=== PATIENT | female | born 1960 | race Caucasian/White ===

== ENCOUNTER 2019-05-23 07:17 | Outpatient (CLI) | payer OTHER, SELFPAY ==
--- NOTE | 2019-05-23 07:26 | MM_ITS ---
WS: [id number] BILATERAL SCREENING DIGITAL MAMMOGRAM WITH CAD HISTORY: SCREENING COMPARISON: 12/18/2014 Bilateral CC and MLO views submitted. Computer aided detection analyzed. Breast composition: The breasts are heterogeneously dense, which may obscure small masses. No suspici ous masses, microcalcifications or architectural distortion. Benign calcifications in each breast. MM/[id number] IMPRESSION: BI-RADS: 2-Benign FOLLOW UP: 1 Year Follow-up
== END 2019-05-23 07:18 | disposition home or self-care (01) ==
LOC: RADSHAW 07:22
PROVIDERS: PCP Nurse Practitioner Family; Visit Provider Nurse Practitioner Family
DX: Z12.31 Encounter for screening mammogram for malignant neoplasm of breast (principal)
CPT/HCPCS: 77067

== ENCOUNTER → 2020-07-10 14:15 | Outpatient (BNVA) | payer OTHER, SELFPAY | PROVIDERS: PCP Nurse Practitioner Family; Visit Provider Obstetrics & Gynecology | DX: N95.0 Postmenopausal bleeding (principal); D25.0 Submucous leiomyoma of uterus; D25.1 Intramural leiomyoma of uterus | CPT/HCPCS: 81025; 88305 ==

== ENCOUNTER → 2020-08-21 15:39 | Outpatient (BNVA) | payer OTHER, SELFPAY | PROVIDERS: PCP Nurse Practitioner Family; Visit Provider Obstetrics & Gynecology | DX: Z20.822 Contact with and (suspected) exposure to COVID-19 (principal); D25.0 Submucous leiomyoma of uterus; D25.1 Intramural leiomyoma of uterus | CPT/HCPCS: 87635 ==

== ENCOUNTER 2020-08-27 14:39 | Observation (INO) | payer OTHER, SELFPAY ==
[2020-08-25 11:06] VITALS: BMI 35.9
--- NOTE | 2020-08-25 11:47 | ANES.PREANE2 ---
Pre-Anesthetic Assessment Pre-Anesthetic Assessment: Height/Weight: Height 1.55 m Weight 86.183 kg Preop Diagnosis: Uterine leiomyoma, postmenopausal bleeding Proposed Procedure: Operation Date: 08/27/20 07:00 Proposed Procedures p Total Abdominal Hysterectomy 48196 D25.1 N95.0(Not Applicable) - Osmani Davis MD s Salpingo Oophorectomy (Open)(Not Applicable) - Osmani Davis MD Was Beta Loretta taken within 24 hours: N/A Was Clonidine taken within 24 hours: N/A Social: Social History: No alcohol and No tobacco Exam: Pre-Anes Outpt Exam: alert, oriented x 3, clear to auscultation bilaterally and regular rate & rhythm Airway: Submandibular: WNL Cervical ROM: WNL MP: 2 Dentition: Full CV/HEM: CV/HEM: HTN Metabolic: Metabolic: Morbid obesity Anesthetic Plan: ASA status: 2 Anesthesia: General Risk of > 500 ml blood loss (7ml/kg in children): No PFSH Anesthesia PFSH: Medical History Hypertension Surgical History History of delivery 1983 and 1985 History of cholecystectomy Early Family History Grandfather CAD (coronary artery disease) Mother Hypertension Stroke Father CAD (coronary artery disease) Cancer Lung cancer - smoker Diabetes Lung disease COPD - smoker Denies family history of Clotting disorder Dementia Hyperlipidemia Psychiatric illness Chronic kidney disease (CKD) Suicide Anesthesia complication Bleeding disorder Family history of premature coronary artery disease Social History (Updated 08/25/20 @ 07:53 by Shanika Rodríguez RN) Smoking and tobacco status: never smoked Alcohol intake: never Substance/Drug Use: never Data Anesthesia Cardiac Studies: No Data to Display
[2020-08-25 12:19] LABS: Basophils # 0.1 10^3/uL (0.0-0.1); Basophils % 0.9 %; Eosinophils # 0.3 10^3/uL (0.0-0.8); Eosinophils % 3.2 %; Hematocrit 45.1 % (37.0-47.0); Hemoglobin 14.9 g/dL (11.5-15.3); Lymphocytes # 2.3 10^3/uL (0.8-4.8); Mean Corpuscular Hemoglobin 29.3 pg (28.0-34.0); Mean Corpuscular Volume 88.8 fL (81-99); Monocytes # 0.6 10^3/uL (0.2-0.9); Monocytes % 7.2 %; Neutrophils # 4.87 10^3/uL (1.8-7.7); Neutrophils % 60.1 %; Nucleated Red Blood Cells % 0 %; Platelet Count 277 10^3/cmm (130-400); Red Blood Count 5.08 10^6/uL (4.1-5.3); White Blood Count 8.1 10^3/uL (4.0-10.0)
[2020-08-25 12:52] LABS: Urine Color Yellow (Yellow)
[2020-08-25 12:56] LABS: Alanine Aminotransferase 57 U/L (0-33); Albumin Level 4.5 g/dL (3.5-5.2); Alkaline Phosphatase 82 IU/L (35-105); Anion Gap 17.7 (5-19); Aspartate Amino Transferase 50 U/L (0-32); Blood Urea Nitrogen 11 mg/dL (6-20); Calcium 8.9 mg/dL (8.5-10.5); Carbon Dioxide 23 mmol/L (22-29); Chloride 104 mmol/L (98-107); Globulin 2.8 g/dL (1.3-4.6); Glomerular Filtration Rate 163.9 mL/min (90-130); Glucose 146 mg/dL (65-115); Osmolality Calculated 294 mOsm/kg (285-295); Potassium 3.7 mmol/L (3.5-5.1); Sodium 141 mmol/L (136-145); Total Bilirubin 0.5 mg/dL (0.15-1.2); Total Protein 7.3 g/dL (6.6-8.7)
[2020-08-25 13:05] LABS: Bilirubin Urine Neg (Negative); Blood Urine 3+ (Negative); Glucose Urine UA Norm (Normal); Ketones Urine Negative (Negative); Leukocyte Esterase Urine 2+ (Negative); Nitrate Urine Negative (Negative); Protein Urine Neg (Negative); Specific Gravity, Urine 1.015 (1.005-1.030); Urine Appearance Hazy (CLEAR); Urobilinogen Urine Norm (Negative); pH Urine 6 (5-7)
[2020-08-25 13:06] LABS: Add Urine Culture? Yes; Add Urine Microscopic? YES; RBC Urine 15-25 /hpf (0-2); Squamous Epithelial Cell Urine 0-4 /hpf (0-5)
[2020-08-25 14:08] LABS: Bacteria Urine 1+ /hpf
[2020-08-27] VITALS (15 sets, daily range): BP systolic 108–175; BP diastolic 7–88; PULSE 70–95; RESP 15–20; TEMP 36.6–37.3; O2SAT 91–98
[2020-08-27] MEDS: sodium chloride 0.9% 1,000 ML 30 ML IV (10:00)
[2020-08-27] MEDS: sodium chloride 0.9% 500 ML IV (10:09)
[2020-08-27] MEDS: scopolamine 1.5 Patch 1 PATCH TRANSDERMA (10:09)
--- NOTE | 2020-08-27 10:42 | W.PM.OPSUD ---
Surgery/Procedure H&P Update DATE OF PROCEDURE: August 27, 2020 DATE H&P PERFORMED: 08/25/20 H&P UPDATE INFORMATION: I have reviewed H&P completed within last 30 days, I have examined patient prior to procedure and No changes to prior documentation PREOP DIAGNOSIS: Uterine leiomyoma, postmenopausal bleeding PLANNED PROCEDURE: Operation Date: 08/27/20 10:40 Proposed Procedures p Total Abdominal Hysterectomy 61399 D25.1 N95.0(Not Applicable) - Osmani Davis MD s Salpingo Oophorectomy (Open)(Not Applicable) - Osmani Davis MD
--- NOTE | 2020-08-27 10:49 | P.ANESUD_ITS ---
Pre-Anesthetic Update Pre-Anesthetic Assessment: Date of Surgery/Procedure: 08/27/20 Preop Meli gnosis: Uterine leiomyoma, postmenopausal bleeding Proposed Procedure: Operation Date: 08/27/20 10:40 Proposed Procedures p Total Abdominal Hysterectomy 36918 D25.1 N95.0(Not Applicable) - Osmani Davis MD s Salpingo Oophorectomy (Open)(Not Applicable) - Osmani Davis MD Any changes to Pre-Anesthetic Assessment?: No Last Intake: Intake Last Liquid Date 08/26/20 Last Liquid Time 21:00 Last Solid Date 08/27/20 Last Solid Time 18:30 Labs Last 48hrs: Laboratory Results - last 48 hr 08/25/20 08/25/20 08/25/20 11:30 11:30 11:30 WBC 8.1 RBC 5.08 Hgb 14.9 Hct 45.1 MCV 88.8 MCH 29.3 MCHC 33.0 RDW 13.0 Plt Count 277 MPV 11.0 H Neut % (Auto) 60.1 Lymph % (Auto) 28.0 Alexander % (Auto) 7.2 Eos % (Auto) 3.2 Baso % (Auto) 0.9 Neut # (Auto) 4.87 Lymph # (Auto) 2.3 Alexander # (Auto) 0.6 Eos # (Auto) 0.3 Baso # (Auto) 0.1 Nucleated RBC % (a uto) 0 Nucleated RBCs # 0.0 Sodium 141 Potassium 3.7 Chloride 104 Carbon Dioxide 23 Anion Gap 17.7 BUN 11 Creatinine 0.4 L GFR Calculation 163.9 H Glucose 146 H Calculated Osmolal ity 294 Calcium 8.9 Total Bilirubin 0.5 AST 50 H ALT 57 H Alkaline Phosphata se 82 Total Protein 7.3 Albumin 4.5 Globulin 2.8 Urine Color Yellow Urine Appearance Hazy A Urine pH 6 Ur Specific Gravit y 1.015 Urine Protein Neg Urine Glucose (UA) Norm Urine Ketones Negative Urine Blood 3+ H Urine Nitrate Negative Urine Bilirubin Neg Urine Urobilinogen Norm Ur Leukocyte April ase 2+ H Urine RBC 15-25 H Urine WBC 10-15 H Ur Squamous Epith Cells 0-4 H Amorphous Sediment Not Reportable Urine Bacteria 1+ H Blood Type Rho(D) Type Antibody Screen 08/25/20 11:30 WBC RBC Hgb Hct MCV MCH MCHC RDW Plt Count MPV Neut % (Auto) Lymph % (Auto) Alexander % (Auto) Eos % (Auto) Baso % (Auto) Neut # (Auto) Lymph # (Auto) Alexander # (Auto) Eos # (Auto) Baso # (Auto) Nucleated RBC % (a uto) Nucleated RBCs # Sodium Potassium Chloride Carbon Dioxide Anion Gap BUN Creatinine GFR Calculation Glucose Calculated Osmolal ity Calcium Total Bilirubin AST ALT Alkaline Phosphata se Total Protein Albumin Globulin Urine Color Urine Appearance Urine pH Ur Specific Gravit y Urine Protein Urine Glucose (UA) Urine Ketones Urine Blood Urine Nitrate Urine Bilirubin Urine Urobilinogen Ur Leukocyte April ase Urine RBC Urine WBC Ur Squamous Epith Cells Amorphous Sediment Urine Bacteria Blood Type A Positive Rho(D) Type Positive / 4+ Antibody Screen Negative Vitals: Temperature 98.6 F 08/27/20 09:27 Temperature Source Temporal Artery S can 08/27/20 09:27 Pulse Rate 87 08/27/20 09:27 Respiratory Rate 18 08/27/20 09:27 Blood Pressure 175/88 08/27/20 09:27 Blood Pressure Luz n 117 08/27/20 09:27 Pulse Oximetry 98 08/27/20 09:27 Oxygen Delivery Me thod 08/27/20 09:27 Exam: Pre-Anes Outpt Exam: alert, oriented x 3, clear to auscultation bilaterally and regular rate & rhythm Cardiac Studies: No Data to Display
[2020-08-27] MEDS: ceFOXitin 2,000 MG in sodium chloride 0.9% (plus) 50 ML 100 MG IV (12:43)
--- NOTE | 2020-08-27 14:00 | SUR.OPER ---
FAMILY UPDATED VIA CELL PHONE
--- NOTE | 2020-08-27 14:37 | P.OP_ITS ---
Operative Report Date of procedure: August 27, 2020 Pre-op Diagnosis: Uterine leiomyoma, postmenopausal bleeding Post-op diagnosis: same Procedure Done: Total abdominal hysterectomy with bilateral salpingo- oophorectomy Specimens removed/disposition: Uterus with left and right adnexa with ovaries Surgeon: Osmani Davis MD Anesthesia: General Estimated blood loss (mL): 100 IV fluids (mL): 1,400 Urine output (mL): 200 Condition: stable Disposition: PACU Procedure: The patient was taken to the operating room, and after adequate level of general anesthesia was achieved, the patient was placed in the Trendelenburg position, prepped and draped in the usual sterile fashion. Subsequently, a Pfannenstiel incision was made and the incision was taken down to the fascia. The fascia was opened up sharply. The fascia was extended to the length of the incision using the Mejia scissors. At this time, the rectus muscles were dissected from the fascia superiorly and inferiorly to the symphysis pubis. The midline rectus muscles were opened sharply and extended superiorly and inferiorly. The peritoneum was visualized, grasped, opened sharply, and extended superiorly and inferiorly towards the bladder. The abdominal contents were packed superiorly away from the operative site using the lap packs. At this time, the pelvic organs were noted. The Ten self-retaining retractor was placed. Bowel was packed away from the operative site. The fundus of the uterus was then grasped with a triple-tooth tenaculum and retracted out of the pelvic cavity into the abdominal site. At this point, Sherrie clamps were placed in both right and left adnexal regions. Subsequently, using the Enseal cautery/sealing unit, the round ligaments were grasped, cauterized, and dissected. The bladder flap was then formed and the bladder flap was pushed away down anteriorly over the lower uterine segment, pushed away from the operative site on both the right and left sides. Subsequently, the posterior leaf of the broad ligament was opened sharply and the Enseal instrument was then placed below the level of the ovary in both the right and left side, care being taken not to damage bowel or uterus and the infundibulopelvic ligament was then grasped, cauterized, and again dissected. Further dissection of the broad ligament was carried down posteriorly towards the uterine vessels. The bladder was pushed inferiorly down towards the vagina. Subsequently, the uterine vessels were then grasped again with the Enseal machine, cauterized, and dissected. The cardinal ligaments were further grasped, dissected, and suture ligated, again with the Enseal machine. At that point, the Enseal machine instrument was stopped and straight Zeppelin clamps were used on the cardinal ligaments down towards the uterosacral ligaments. The cardinal ligaments were grasped, dissected with a scalpel and then ligated with transfixion sutures with #1 Vicryl suture down to the uterosacral ligaments. The uterosacral ligaments were grasped, dissected, and suture ligated again with #1 Vicryl suture and transfixion sutures. At that time, the bladder had been pushed over the vagina and at this time right-angle Zeppelin clamps were placed on the vagina at the level of the cervix, and using the Shan scissors, the cervix was dissected away from the vagina. At this time, the vaginal cuff was then closed using interrupted sutures of #1 Vicryl suture from the midline to each lateral corner. After the good hemostasis had been achieved in the vaginal cuff, both the right and left adnexa was visualized and no more bleeding was noted. The cuff was intact with no bleeding noted. The bladder was visualized and no bleeding was noted. Seprafilm was then placed over the vaginal cuff. The Ten self-retaining retractor was removed. The lap packs were removed, and at this time, general closure of the abdomen was carried out. The peritoneum was closed with a 2-0 Vicryl suture and continuous running suture. The fascia was closed using a #1 Vicryl suture from each corner to the midline. Subcutaneous tissue was cauterized. No bleeding was noted. The subcutaneous tissue was then reapproximated using plain sutures and interrupted sutures, and the skin was closed using the Insorbs subcuticular absorbable aliyah. The incision was infiltrated with Exparel for pain management. The patient tolerated the procedure well and was transferred to the recovery room in excellent condition. The patient returned to the floor for recovery.
--- NOTE | 2020-08-27 15:02 | SUR.PHASEI ---
PT AWAKES TO VOICE BUT QUICKLY BACK TO SLEEP WITH SNORTING RESP, VSS IV PATENT ABD LARGE SOFT WITH LARGE DRESSING TO LOWER ABD AND DARCIE PAD IN PLACE, KIDD TO DD WITH BLUE URINE NOTED TO TUBING AND BAG, PT PLACED ON 3LNC FOR COMFORT.
--- NOTE | 2020-08-27 15:14 | ANE.PACU2 ---
Inpatient post-anesthesia follow up: Airway intact: Yes Vital signs: Temperature 99.1 F Pulse Rate 95 Respiratory Rate 16 Blood Pressure 117/74 Pulse Oximetry 92 Oxygen Delivery Me thod Nasal Cannula Oxygen Flow Rate 3 Fraction of Inspir ed Oxygen Hydration adequate: Yes Nausea and vomiting: No Pain level: 2 Mental status: Baseline
[2020-08-27] MEDS: ondansetron 2 mg/ML SDV 2 mL 4 MG IVP (15:57)
[2020-08-27] MEDS: ketorolac 30 mg/mL INJ IVP ×2 (15:57→22:27)
[2020-08-27] MEDS: dextrose 5%-lactated ringers 1,000 ML 125 ML IV (16:38)
[2020-08-27] MEDS: docusate sodium 100 mg Capsule PO (17:45)
[2020-08-27] MEDS: HYDROcodone-acetaminophen 5-325 mg Tablet PO (17:45)
--- NOTE | 2020-08-27 18:56 | PC.NURSE ---
Call to Dr. Davis to report pt pain 01/02. Pt has had toradol and 2 norco. Received orders for one time dose of Dilauded 1 mg IVP.
[2020-08-27] MEDS: HYDROmorphone 1 mg/mL INJ 1 mL IVP (20:37)
[2020-08-28] VITALS (7 sets, daily range): BP systolic 100–130; BP diastolic 62–76; PULSE 62–76; RESP 16–18; TEMP 36.7–37.1; O2SAT 92–94
[2020-08-28] MEDS: HYDROcodone-acetaminophen 5-325 mg Tablet PO ×3 (02:46→18:08)
[2020-08-28] MEDS: dextrose 5%-lactated ringers 1,000 ML 125 ML IV ×3 (04:30→17:57)
[2020-08-28] MEDS: ketorolac 30 mg/mL INJ IVP ×2 (05:23→08:34)
[2020-08-28 05:43] LABS: Hematocrit 35.9 % (37.0-47.0); Mean Corpuscular HGB Conc 33.4 g/dL (30.0-36.0); Mean Corpuscular Hemoglobin 29.9 pg (28.0-34.0); Mean Corpuscular Volume 89.3 fL (81-99); Mean Platelet Volume 10.6 fL (7.4-10.4); Platelet Count 258 10^3/cmm (130-400); Red Blood Count 4.02 10^6/uL (4.1-5.3); Red Cell Distribution Width 13.1 % (12.1-15.1); White Blood Count 16.2 10^3/uL (4.0-10.0)
[2020-08-28] MEDS: losartan 50 mg Tablet 100 MG PO (08:33)
[2020-08-28] MEDS: docusate sodium 100 mg Capsule PO ×2 (08:33→17:57)
[2020-08-28] MEDS: amlodipine 5 mg Tablet PO (09:48)
--- NOTE | 2020-08-28 11:02 | PM.PN ---
Subjective Subjective: Interval history: Mrs. Mayen 60-year-old female with a history of postmenopausal bleeding and uterine leiomyoma status post total abdominal hysterectomy with bilateral salpingo-oophorectomy postoperative day 1 Vitals/I&O/Wt Last Vital Signs Temp 98.3 F 08/28/20 08:11 Pulse 62 08/28/20 08:11 Resp 16 08/28/20 08:11 BP 128/74 08/28/20 08:33 Pulse Ox 94 08/28/20 08:11 08/27/20 08/28/20 08/28/20 22:59 06:59 14:59 Intake Total 100 / 1950 1000 / 2950 502.083 / 502.083 Output Total 800 / 1450 900 / 2350 200 / 200 Balance -700 / 500 100 / 600 302.083 / 302.083 Physical Exam Narrative: EXAM NARRATIVE: GA: Alert and oriented ?3. HEENT: WNL. Heart: Regular rate and rhythm. Lungs: Clear to auscultation bilaterally. Abdomen: Bowel sounds present, minimal tenderness, incision clean and dry, no redness, pain or edema. VOCATIONAL REHAB CONSULTANT: No bleeding. Extremities: No edema, no cyanosis, no calves pain. Urinary Catheter Management^: Burger: Cath Placed During This Visit: yes Urinary Catheter Date of Insertion: 08/27/20 Urinary Catheter Time of Insertion: 12:50 Data : 08/28/20 05:30 08/25/20 11:30 Micro: Microbiology 08/25/20 11:30 Urine Culture - Final Urine,Clean Catch A&P Assessment and plan (1) Intramural and submucous leiomyoma of uterus: Mrs. Mayen status post LENI and BSO postoperative day 1. She is afebrile and hemodynamically stable. Tolerating diet fluids well. Refers pain under control better than yesterday. Ambulating without difficulty. Plan anticipate discharge home tomorrow. Status: Acute (2) Post-menopausal bleeding: Status: Acute Attestations Medical Necessity Statement*: In my professional opinion per admitting diagnosis Coding Level of Care Code Acute Air Conditioning Mechanic Industrial for Lisa Phillip Diagnoses Intramural and submucous leiomyoma of uterus D25.1; D25.0 Post-menopausal bleeding N95.0
[2020-08-28] MEDS: ibuprofen 800 mg tablet PO (15:05)
[2020-08-28] MEDS: ondansetron 2 mg/ML SDV 2 mL 4 MG IVP (20:16)
[2020-08-28] MEDS: simethicone 80 mg Chew PO (21:17)
[2020-08-28] MEDS: promethazine 25 mg/mL SDV 1 mL IM (21:56)
[2020-08-29] MEDS: HYDROcodone-acetaminophen 5-325 mg Tablet PO (00:46)
[2020-08-29 06:45] VITALS: BP 119/69; PULSE 70; RESP 18; TEMP 36.8
[2020-08-29] MEDS: ibuprofen 800 mg tablet PO (07:50)
[2020-08-29 08:51] VITALS: BP 163/86
[2020-08-29] MEDS: amlodipine 5 mg Tablet PO (08:51)
[2020-08-29] MEDS: losartan 50 mg Tablet 100 MG PO (08:51)
[2020-08-29] MEDS: docusate sodium 100 mg Capsule PO (08:52)
[2020-08-29 11:40] VITALS: BP 150/83; PULSE 78; RESP 15; TEMP 36.8; O2SAT 94
--- NOTE | 2020-08-29 12:54 | P.DS_ITS ---
Discharge Providers BUILDING MAINTENANCE TECHNICIAN Date of Admission: 08/27/20 14:39 Date of Discharge: 08/29/20 Attending Provider at Admission: Osmani Davis MD Attending Provider at Discharge: Osmani Davis MD Primary Care Provider: AYLEEN Dugan Diagnoses at Discharge Discharge Diagnosis (1) Intramural and submucous leiomyoma of uterus: Status: Acute (2) Post-menopausal bleeding: Status: Acute Reason for Visit Reason for Visit: uterine fibroid Hospital Course Hospital Course Home 60 years old female G2, P2, delivery x2 with postmenopausal bleeding and uterine leiomyoma. Admitted for a total abdominal hysterectomy and bilateral salpingo-oophorectomy. She is a status post abdominal hysterectomy with bilateral salpingo-oophorectomy postoperative day 2. the procedure was performed without complication. Postop observation uneventful. She is tolerating diet well ambulating without difficulty. Passing flatus. Pain under control with medication. Patient instructed to follow-up in the clinic next Tuesday to discuss confirmed pathology report. Physical Exam Narrative: EXAM NARRATIVE: GA: Alert and oriented ?3. HEENT: WNL. Heart: Regular rate and rhythm. Lungs: Clear to auscultation bilaterally. Abdomen: Bowel sounds present, nontender, minimal tenderness, incision clean and dry, no redness, pain or edema. ORACLE DISTRIBUTION CONSULTANT: No bleeding. Extremities: No edema, no cyanosis, no calves pain. Urinary Catheter Management^: Burger: Cath Placed During This Visit: yes, but has since been removed by the nurse Reason for Continuing Indwelling Catheter: Decision to DC Catheter Urinary Catheter Date of Insertion: 08/27/20 Urinary Catheter Time of Insertion: 12:50 Date Urinary Catheter Removed: 08/29/20 Time Urinary Catheter Discontinued: 08:57 Discharge Data Data Completed and Pending: Completed Studies During Hospitalization Category Date Time Status Pathology: Surgic al [PTH] Routine Pth 08/27/20 14:50 Completed Pending at discharge Category Date Time Status Miscellaneous Valerie t Routine Lab 08/28/20 07:57 Received Labs from last 24 hours 08/28/20 07:57 Misc Test Referenc e Pending Vitals: Last Vital Signs Temp 98.2 F 08/29/20 11:40 Pulse 78 08/29/20 11:40 Resp 15 08/29/20 11:40 BP 150/83 08/29/20 11:40 Pulse Ox 94 08/29/20 11:40 Discharge Plan Discharge Patient Disposition: Home Condition: Stable Prescriptions: New acetaminophen 325 mg capsule 325 mg PO Q4H PRN (Reason: fever or pain) Qty: 60 RF: 0 hydrocodone-acetaminophen 5-325 mg tablet 1 tab PO Q4H PRN (Reason: pain) Qty: 30 RF: 0 Colace 100 mg capsule 100 mg PO BID Qty: 60 RF: 0 Continued losartan 100 mg tablet 100 mg PO DAILY RF: 0 amlodipine 2.5 mg tablet 5 mg PO DAILY RF: 0 Discharge Orders: Discharge Order (Routine); Ordered 08/29/20 Ordered By: Osmani Davis Referrals: Osmani Davis MD [Physician] - 09/02/20 10:30 am (Your appointment with Dr. Davis next week is on 09/02 at 1030. Your 2 week post-op appointment is scheduled for 09/12 at 9 with Your 6 weeek post-op appointment is scheduled for 10/[address] Davis) Discharge Diet: Usual diet and GI Soft Discharge Activity: Increase activity as tolerated Patient Instructions: Abdominal Hysterectomy (DC), OB Abdominal Surgery - [facility], OB Discharge Report, OB Food/Drug Interaction Guide, Opioid Safety Activity Restrictions/Additional Instructions: 1. Please call [facility] on next working day to make your post-operative appointment in 1 weeks. 2. Please stay home until you come back to the clinic on first post-operative check up. 3. Please follow instructions on your medications CAREFULLY. 4. If you have abdominal incision, do not cover it unless dressing is necessary because of drainage. OK to shower, but avoid bath. Leave steri-strips until they fall off. If they are still on one week after surgery, you may remove them. 5. If you had vaginal surgery or vaginal repair, Dr. Davis may instruct you to take SITZ bath. 6. Yellow, blood tinged odorous vaginal discharge is usually normal after hysterectomy or vaginal surgeries. 7. No sexual intercourse, tampons, or douches until you are completely released from the post-operative care. 8. Avoid constipation by eating right and maybe using some Metamucil or Milk of Magnesia. 9. All prescription refills are given during the working hours. Please do no wait till it runs out. Call the clinic at [phone] before your medication runs out. The clinic will get in touch with your doctor to prescribe medications if necessary. 10. Please remain within 40 mile radius from our hospital because emergencies do happen now and then during the post-operative period. 11. If you have stairs at home, take one step at a time slowly and minimize the number of trips. It helps to stay in one floor for the next few days. No lifting except what you can lift by one hand until you are released from the post-operative care. 12. Driving is discouraged until you are well healed. It may be 3-4 weeks before you feel strong enough to drive. You should be able to turn and look through the rear window without pain and you should be able to push the brake pedal very hard without pain before you drive. No fast rules, but SAFETY should be your primary concern. DO NOT drive if you are on sedating medications such as narcotics. 13. Call the clinic (during working hours) to make urgent appointment or go to the Emergency room, if any of the following occurs: i. Vaginal bleeding becomes heavy, more than a period. ii. Incision becomes red and sore, or drains pus. iii. Your temperature is over 100.4 or you have chill. iv. IV site becomes red and swollen (a little ``knot?? is usually OK) v. Persistent nausea and vomiting vi. Persistent constipation or diarrhea vii. Rash or allergic reaction to medications. Discharge Attestations BUILDING MAINTENANCE TECHNICIAN Time Spent in Discharge Care*: greater than 30 min Coding Level of Care Code Acute Daub Color Mixer for rayo Phillip Diagnoses Intramural and submucous leiomyoma of uterus D25.1; D25.0 Post-menopausal bleeding N95.0
[2020-08-29 13:35] VITALS: BP 149/78; PULSE 82; RESP 16; TEMP 37.2; O2SAT 90
[2020-08-29 13:43] VITALS: BP 149/78; PULSE 82; RESP 16; TEMP 37.2; O2SAT 90
[2020-09-08 06:54] LABS: Miscellaneous Test See Scanned Lab Rpt
== END 2020-08-29 13:45 | disposition home or self-care (01) ==
LOC: OBGYN 08-29 07:38
PROVIDERS: Admitting Provider Obstetrics & Gynecology; PCP Nurse Practitioner Family; Visit Provider Obstetrics & Gynecology
PROC: 0UT90ZZ Resection of Uterus, Open Approach (ICD-10-PCS; CPT 58150; principal; 2020-08-27 10:40)
PROC: (CPT 58720; 2020-08-27 10:40)
DX: D25.1 Intramural leiomyoma of uterus (principal); D25.0 Submucous leiomyoma of uterus; N95.0 Postmenopausal bleeding; G89.18 Other acute postprocedural pain; K59.01 Slow transit constipation; I10 Essential (primary) hypertension; E66.01 Morbid (severe) obesity due to excess calories; Z68.35 Body mass index [BMI] 35.0-35.9, adult
CPT/HCPCS: 58150; 36415; 51702; 80053; 81001; 81025; 85025; 85027; 86850; 86900; 87086; 88305; 88307; 88341; 88342; 96365; 96372; C9290; G0378; J0694; J1100; J1170; J1200; J1885; J2405; J2550; J2704; J3010; J3490; J7030; J7040

== ENCOUNTER 2020-10-16 07:54 | Outpatient (CLI) | payer OTHER, SELFPAY ==
--- NOTE | 2020-10-16 08:06 | MM_ITS ---
WS: [id number] BILATERAL DIGITAL SCREENING MAMMOGRAPHY WITH CAD CLINICAL INFORMATION: SCREENING HISTORY: Screening mammogram. No current complaints. COMPARISON: May 23, 2019 TECHNIQUE: Bilateral CC and MLO views. FINDINGS: Scattered fibroglandular densities bilaterally. A few stable intramammary lymph nodes. Punctate and l ucent centered calcifications. No suspicious focal mass, asymmetry, calcifications, or architectural distortion. No evidence of malignancy. MM/[id number] IMPRESSION: BI-RADS: 2-Benign FOLLOW UP: 1 Year Follow-up Recommend return to annual screening mammography.
== END 2020-10-16 07:55 | disposition home or self-care (01) ==
LOC: RADSHAW 07:57
PROVIDERS: PCP Nurse Practitioner Family; Visit Provider Nurse Practitioner Family
DX: Z12.31 Encounter for screening mammogram for malignant neoplasm of breast (principal)
CPT/HCPCS: 77067

== ENCOUNTER 2021-12-29 08:31 | Outpatient (CLI) | payer OTHER, SELFPAY ==
--- NOTE | 2021-12-29 08:44 | MM_ITS ---
WS: [id number] BILATERAL SCREENING DIGITAL TOMOSYNTHESIS MAMMOGRAM WITH CAD HISTORY: SCREEN COMPARISON: 10/16/2020 and 05/23/2019 Bilateral CC and MLO views with tomosynthesis and synthetic mammography submitted. Computer aided det ection analyzed. Breast composition: The breasts are heterogeneously dense, which may obscure small masses. No suspici ous masses, microcalcifications or architectural distortion. Stable scattered asymmetries and calcifi cations. MM/[id number] IMPRESSION: BI-RADS: 2-Benign FOLLOW UP: 1 Year Follow-up
== END 2021-12-29 08:32 | disposition home or self-care (01) ==
LOC: RAD 08:32
PROVIDERS: PCP Nurse Practitioner Family; Visit Provider Nurse Practitioner Family
DX: Z12.31 Encounter for screening mammogram for malignant neoplasm of breast (principal)
CPT/HCPCS: 77063; 77067

== ENCOUNTER 2023-01-13 07:38 | Outpatient (CLI) | payer OTHER, SELFPAY ==
--- NOTE | 2023-01-13 | MM_ITS ---
WS: [id number] BILATERAL SCREENING DIGITAL TOMOSYNTHESIS MAMMOGRAM WITH CAD HISTORY: ANNUAL SCREENING COMPARISON: 12/29/2021, 10/16/2020 Bilateral CC and MLO views with tomosynthesis and synthetic mammography submitted. Computer aided det ection analyzed. Breast composition: The breasts are heterogeneously dense, which may obscure small masses. No suspici ous masses, microcalcifications or architectural distortion. Benign calcifications in each breast. IMPRESSION: MM/[place] [id number] BI-RADS: 2-Benign FOLLOW UP: 1 Year Follow-up
== END 2023-01-13 07:39 | disposition home or self-care (01) ==
PROVIDERS: PCP Nurse Practitioner Family; Visit Provider Nurse Practitioner Family
DX: Z12.31 Encounter for screening mammogram for malignant neoplasm of breast (principal)
CPT/HCPCS: 77063; 77067

== ENCOUNTER 2023-05-12 06:56 | Day surgery (SDC) | payer OTHER, SELFPAY ==
--- NOTE | 2023-05-12 06:40 | W.PM.OPSFHP ---
Same Day Surgery H&P Indication for Procedure/HPI DATE OF PROCEDURE: May 12, 2023 CHIEF COMPLAINT/INDICATIONFOR SURGICAL PROCEDURE: need for screening colonoscopy PREOP DIAGNOSIS: need for screening colonoscopy PLANNED PROCEDURE: Operation Date: 05/12/23 08:05 [place] [address] colon G0121 screen colon A risk Z12.11(Not Applicable) - Zachary Loera MD Medications/Allergies* Home Medications Medication Instructions Recorded Confirmed Type amlodipine 2.5 mg tablet 5 mg PO DAILY 08/25/20 05/10/23 History aspirin 81 mg tablet,delayed 81 mg PO DAILY 02/07/23 05/10/23 History release (Adult Low Dose Aspirin) atorvastatin 20 mg tablet 20 mg PO DAILY 02/07/23 05/10/23 History losartan 100 mg tablet 50 mg PO DAILY 02/07/23 05/10/23 History metformin 500 mg tablet,extended 500 mg PO BID 02/07/23 05/10/23 History release 24 hr spironolactone 25 mg PO DAILY 02/07/23 05/10/23 History tramadol 50 mg tablet 50 mg PO Q4H PRN Pain 02/07/23 05/10/23 History glyburide 2.5 mg tablet 2.5 mg PO DAILY 05/10/23 05/10/23 History Allergies/Adverse Reactions Allergy/AdvReac Type Severity Reaction Status Date / Time cedarwood Allergy Head Verified 05/10/23 08:57 congestion povidone-iodine Allergy blood Verified 05/10/23 08:57 [From Betadine] blisters soap [From Betadine] Allergy blood Verified 05/10/23 08:57 blisters Pertinent History/Comorbid Conditions* Medical History (Updated 01/12/22 @ 16:51 by Osmani Davis MD) Aftercare following surgery of the genitourinary system Hypertension Surgical History (Updated 09/12/20 @ 09:35 by Osmani Davis MD) H/O: hysterectomy 08/27/2020- [facility] with BSO performed by Dr. Davis at [facility] History of cholecystectomy Early History of delivery 1983 and 1985 Family History (Updated 07/08/20 @ 10:17 by Brianna Chase LPN) Diabetes Father CAD (coronary artery disease) Grandfather Father Lung disease Father COPD - smoker Cancer Father Lung cancer - smoker Hypertension Mother Stroke Mother Denies family history of Clotting disorder Dementia Hyperlipidemia Psychiatric illness Chronic kidney disease (CKD) Suicide Anesthesia complication Bleeding disorder Family history of premature coronary artery disease Social History Smoking and tobacco/nicotine status: never used tobacco/nicotine Alcohol intake: never Substance/Drug Use: never Pertinent Exam Findings alert, oriented x 3 and clear to auscultation bilaterally Recommendations Surgery/Procedure today Coding Level of Care Code Acute Code for [facility] Marjan
[2023-05-12 07:12] VITALS: BP 152/92; PULSE 88; RESP 18; TEMP 36.3; O2SAT 98; BMI 29.0
[2023-05-12] MEDS: sodium chloride 0.9% 1,000 ML 30 ML IV (07:24)
[2023-05-12 07:30] LABS: Glucose Point of Care 190 mg/dL (70-110)
--- NOTE | 2023-05-12 07:37 | ANES.PREANE2 ---
Pre-Anesthetic Assessment Height/Weight: Height 1.52 m Weight 67.585 kg Temp Pulse Resp BP Pulse Ox O2 Del Method 97.4 F L 88 18 152/92 98 Room Air 05/12/23 07:12 05/12/23 07:12 05/12/23 07:12 05/12/23 07:12 05/12/23 07:12 05/12/23 07:12 Preop Diagnosis: need for screening colonoscopy Operation Date: 05/12/23 08:05 Proposed Procedures p 27930 colon G0121 screen colon A risk Z12.11(Not Applicable) - Zachary Loera MD Familial anesthetic complications: none Was Beta Loretta taken within 24 hours: N/A Was Clonidine taken within 24 hours: N/A Last intake: Intake Last Liquid Date 05/11/23 Last Liquid Time 23:55 Last Solid Date 05/10/23 Last Solid Time 18:00 Social No alcohol and No tobacco Exam alert, oriented x 3, clear to auscultation bilaterally and regular rate & rhythm Airway Submandibular: within normal limits Cervical ROM: within normal limits Mallampati: Class II Dentition: full Pulmonary None reported CV/HEM Hypertension angiogram 2.5 years ago. everything checked out ok None reported Hepatic None reported GI Gastroesophageal Reflux Disease (with certain meals) Metabolic Diabetes Mellitus and Hyperlipidemia [facility] [place] None reported Neuropsych None reported Anesthetic Plan ASA status: 2 Anesthesia: MAC Risk of > 500 ml blood loss (7ml/kg in children): No Medications/Allergies Home Medications Medication Instructions Recorded Confirmed Last Taken Type amlodipine 2.5 mg tablet 5 mg PO DAILY 08/25/20 05/10/23 05/11/23 History aspirin 81 mg tablet,delayed 81 mg PO DAILY 02/07/23 05/10/23 05/04/23 History release (Adult Low Dose Aspirin) atorvastatin 20 mg tablet 20 mg PO DAILY 02/07/23 05/10/23 05/11/23 History losartan 100 mg tablet 50 mg PO DAILY 02/07/23 05/10/23 05/11/23 History metformin 500 mg tablet,extended 500 mg PO BID 02/07/23 05/10/23 05/11/23 History release 24 hr spironolactone 25 mg PO DAILY 02/07/23 05/10/23 05/11/23 History tramadol 50 mg tablet 50 mg PO Q4H PRN Pain 02/07/23 05/10/23 05/10/23 History glyburide 2.5 mg tablet 2.5 mg PO DAILY 05/10/23 05/10/23 05/11/23 History Allergies Allergy/AdvReac Type Severity Reaction Status Date / Time christian Allergy Head Verified 05/10/23 08:57 congestion povidone-iodine Allergy blood Verified 05/10/23 08:57 [From Betadine] blisters soap [From Betadine] Allergy blood Verified 05/10/23 08:57 blisters Current Medications Generic Name Dose Route Start Last Admin Trade Name Freq PRN Reason Stop Dose Admin Sodium Chloride 1,000 mls @ 30 mls/hr 05/12/23 07:15 05/12/23 07:24 Sodium Chloride 0.9% IV 30 mls/hr .Q24H CECELIA Administration PFSH Anesthesia Medical History Aftercare following surgery of the genitourinary system Hypertension Surgical History H/O: hysterectomy 08/27/2020- LENI with BSO performed by Dr. Davis at [facility] History of delivery 1983 and 1985 History of cholecystectomy Early Family History Grandfather CAD (coronary artery disease) Mother Hypertension Stroke Father CAD (coronary artery disease) Cancer Lung cancer - smoker Diabetes Lung disease COPD - smoker Denies family history of Clotting disorder Dementia Hyperlipidemia Psychiatric illness Chronic kidney disease (CKD) Suicide Anesthesia complication Bleeding disorder Family history of premature coronary artery disease Social History Smoking and tobacco/nicotine status: never used tobacco/nicotine Alcohol intake: never Substance/Drug Use: never Data Anesthesia Cardiac Studies: No Data to Display
[2023-05-12 08:57] VITALS: BP 146/88; PULSE 107; RESP 20; TEMP 36.1; O2SAT 98
[2023-05-12 09:09] VITALS: BP 135/87; PULSE 108; RESP 18; O2SAT 99
--- NOTE | 2023-05-12 09:20 | ANE.PACU2 ---
Inpatient post-anesthesia follow up: Airway intact: Yes Vital signs: Temperature 97.0 F Pulse Rate 108 Respiratory Rate 18 Blood Pressure 135/87 Pulse Oximetry 99 Oxygen Delivery Me thod Room Air Oxygen Flow Rate Fraction of Inspir ed Oxygen Hydration adequate: Yes Nausea and vomiting: No Pain level: 1 Mental status: Baseline
== END 2023-05-12 09:20 | disposition home or self-care (01) ==
PROVIDERS: PCP Nurse Practitioner Family; Visit Provider Surgery
PROC: 0DJD8ZZ Inspection of Lower Intestinal Tract, Via Natural or Artificial Opening Endoscopic (ICD-10-PCS; CPT 45378; principal; 2023-05-12 08:05)
DX: Z12.11 Encounter for screening for malignant neoplasm of colon (principal); I10 Essential (primary) hypertension; D12.8 Benign neoplasm of rectum; K21.9 Gastro-esophageal reflux disease without esophagitis; E78.5 Hyperlipidemia, unspecified; E11.9 Type 2 diabetes mellitus without complications; Z79.84 Long term (current) use of oral hypoglycemic drugs
CPT/HCPCS: 36416; 45380; 82962; 88305; J2704; J3490; J7030

== ENCOUNTER 2024-02-02 07:46 | Outpatient (CLI) | payer OTHER, SELFPAY ==
--- NOTE | 2024-02-02 07:48 | MM_ITS ---
WS: [id number] BILATERAL SCREENING DIGITAL TOMOSYNTHESIS MAMMOGRAM WITH CAD HISTORY: SCREENING COMPARISON: 01/13/2023, 12/29/2021 and 10/16/2020 Bilateral CC and MLO views with tomosynthesis and synthetic mammography submitted. Computer aided det ection analyzed. Breast composition: There are scattered areas of fibroglandular density. No suspicious masses, microc alcifications or architectural distortion. Benign calcifications in each breast. Arterial calcificati ons. MM/MM scr BI tomosynthesis [id number] IMPRESSION: BI-RADS: 2 - Benign. FOLLOW UP: 1 Year Follow-up
== END 2024-02-02 07:47 | disposition home or self-care (01) ==
LOC: RAD 07:47
PROVIDERS: PCP Nurse Practitioner Family; Visit Provider Nurse Practitioner Family
DX: Z12.31 Encounter for screening mammogram for malignant neoplasm of breast (principal)
CPT/HCPCS: 77063; 77067

== ENCOUNTER 2024-03-12 13:46 | Outpatient (CLI) | payer OTHER, SELFPAY ==
--- NOTE | 2024-03-12 13:48 | XR_ITS ---
WS: [id number] SCREENING DEXA SCAN AIRSIS CLINICAL INFORMATION: POSTMENOPAUSAL COMPARISON: None. FINDINGS: The L1-L4 bone mineral density measures 1.062 g/cm2. This corresponds to a T score score of -1.0 and Z score of 0.1. Left femoral neck bone mineral density measures 1.092 g/cm2. This corresponds to a T score of 0.7 and Z score of 1.5. Right femoral neck bone mineral density measures 1.103 g/cm2. This corresponds to a T score 0.8of and Z score of 1.6. Mean femoral neck bone mineral density measures 1.098 g/cm2. This corresponds to a T score of 0.7 and Z score of 1.6. XR/XR DEXA axial skeleton* [id number] IMPRESSION: Osteopenia lumbar spine. Normal bone mineralization of femoral necks. Patient's FRAX calculated 10 year probability for major osteoporotic fracture i s 6.7% and osteoporotic hip fracture is 0.3%.
== END 2024-03-12 13:47 | disposition home or self-care (01) ==
LOC: RAD 13:47
PROVIDERS: PCP Nurse Practitioner Family; Visit Provider Nurse Practitioner Family
DX: Z13.820 Encounter for screening for osteoporosis (principal); M85.80 Other specified disorders of bone density and structure, unspecified site; Z78.0 Asymptomatic menopausal state
CPT/HCPCS: 77080

== ENCOUNTER 2024-10-16 10:35 | Outpatient (CLI) | payer OTHER, SELFPAY ==
--- NOTE | 2024-10-16 10:41 | FL_ITS ---
WS: [id number] Exam: FL barium swallow modifd [id number] Date/Time of Exam: 10/16/2024 10:48 AM Reason For Exam: Other dysphagia Fluoroscopy time: 2min [id number] minutes # of spot films: 0 Modified barium swallow study was performed in conjunction with the speech therapy service. Oral pharyngeal phase of swallowing was normal. The patient tolerated all consistencies of barium mixture foodstuffs without aspiration or penetration. The patient swallowed a barium tablet without difficulty. FL/FL barium swallow modifd [id number] IMPRESSION: 1. No aspiration or penetration identified. No other significant finding. A separate report with recommendations will follow from the speech therapy serv ice.
== END 2024-10-16 10:36 | disposition home or self-care (01) ==
PROVIDERS: PCP Nurse Practitioner Family; Visit Provider Nurse Practitioner Family
DX: R13.19 Other dysphagia (principal)
CPT/HCPCS: 74230; 92611

== ENCOUNTER 2024-10-16 17:47 | Emergency (ER) | payer OTHER, SELFPAY ==
--- NOTE | 2024-10-16 17:48 | XRR_ITS ---
PROCEDURE INFORMATION: Exam: XR Right Shoulder Exam date and time: 10/16/2024 5:59 PM Age: 64 years old Clinical indication: Injury or trauma; Fall; Blunt trauma (contusions or hematomas); Shoulder; Right; Additional info: Fall, pain TECHNIQUE: Imaging protocol: Radiologic exam of the right shoulder. Views: 2 or more views. COMPARISON: RF FL barium swallow modifd [id number] 10/16/2024 10:47 AM FINDINGS: Bones/joints: There are acute comminuted fractures involving the proximal humerus. One fracture line extends through the surgical neck in the other fracture line extends through the anatomical neck of the humerus. There is mild displacement of the fracture fragments. The humeral head remains properly positioned. Soft tissues: Normal. XR/XR shoulder RT min 2V* [id number] IMPRESSION: Acute comminuted fractures of the proximal humerus
[2024-10-16 17:53] VITALS: BP 150/81; PULSE 91; RESP 18; TEMP 36.7; O2SAT 95
--- OUTSIDE RECORDS SUMMARY | 2024-10-16 18:10 | XMS_ITS | Clinical Summary ---
Author Organization [facility] Address [address] 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
--- OUTSIDE RECORDS SUMMARY | 2024-10-16 18:10 | XMS_ITS | Encounter Summary ---
Author Organization [facility] Address [address] [place] [address] Care Team Providers Care Manager Underwriting Name Role Phone Unavailable Primary Care Provider Unavailabl e Encounter Details Date Type Department Care Team (Latest Contact Info) Description 08/11/1998 Outpatient Historical 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
--- OUTSIDE RECORDS SUMMARY | 2024-10-16 18:10 | XMS_ITS | Data Portability ---
Author Organization [facility] De Dios Quechan [facility] Address [address] [address] Care Team Providers Care Technical Sales Engineer Name Role Phone [facility] Primary Care Provider SANNA Swanson Referring Provider [phone] KARLOS MADRID Referring Provider [phone] Assessment Encounter Date Assessment Date Assessment LastModified by Organization Details LastModified Time 12/30/2023 12/30/2023 Patient reports she has pain in her leg that was worse yesterday. Today she can put some weight on it but yesterday she couldn't even walk with it. The pain is in her upper right thigh. Tramadol didn't really help at all yesterday. Patient reports she was a little more active at home over the weekend. She will add some Ibuprofen for the next few days. Not available 12/30/2023 10:12:13 08/27/2024 08/27/2024 Patient here today for a check-up. Concerns discussed, hot flashes/cold spells most likely just normal effect following hysterectomy (appt with oncology/PROJECT DRILLING ENGINEER over the summer can discuss with them as well). Tingling pains and tenderness probably neuropathy, will add Gabapentin. DEXA scan results reviewed. Scheduled modified barium swallow then will get EGD scheduled following results. Not available 08/27/2024 11:43:53 Plan of Treatment Reminders Order Date Submit Date Provider Last Modified By Organization Details Last Modified Time Details Appointments None recorded. Lab microalbumi n/creatinin e, mass ratio, urine 2024 025 mphoria [facility], [address], [address], [place], [address], 5 06:49:40 hemoglobin A1C/hemoglo bin total, QN, blood 2024 025 [facility], [address], [address], [place], [address], 5 11:39:59 thyrotropin , QN, serum or plasma 2024 025 [facility], [address], [address], [place], [address], 5 12:26:54 CMP, serum or plasma 2024 025 [facility], [address], [address], [place], [address], 5 12:00:13 lipid panel, blood 2024 025 [facility], [address], [address], [place], [address], 12:00:16 CBC 2024 025 [facility], [address], [address], [place], [address], 5 11:38:46 urinalysis, complete 2023 024 [facility], [address], [address], [place], [address], 4 11:04:54 culture, urine 2023 024 [facility], [address] [place], [place] [address], [address], [place], [address], 4 21:42:30 CMP, serum or plasma 2023 024 [facility], [address] [place] [address], [address], [place], [address], 4 21:42:30 CBC 2023 024 [facility], [address] [facility], [address], [address], 4 10:54:29 HbA1c (hemoglobin A1c), blood 2023 024 [facility] ([facility] [address] [place], [address], 4 11:02:10 ca 125, serum 2023 024 [facility], [address] [place] [address], [address], [place], [address], 4 08:20:21 CBC w/ auto diff 2023 024 [facility], [address] [facility], [address], [place], [address], 4 07:16:50 CMP, serum or plasma 2023 024 [facility], [address] [facility], [address], [address], 4 12:22:33 TSH, serum or plasma 2023 024 [facility] ([facility]), [address] [place], [address], 4 12:45:47 vitamin B12, serum 2023 024 [employer] [facility], [address] [place] [address], [address], [place], [address], 4 08:20:21 Referral None recorded. Procedures None recorded. Surgeries None recorded. Imaging [place], modified barium swallow study [address] Imaging Orders, [address] [place], [address], 5 11:50:58 XR, hip + pelvis, unilateral, 2 or 3 view 2024 025 [facility] ([facility]), [address] [place], [address], 5 15:04:46 US, hip - [address] [address], [address] [place], [address], 5 13:23:10 bone density [address] (Scheduling Orders), [address] [place], [address], 4 11:51:56 Medication Orders gabapentin 100 mg capsule 2024 025 [facility], [facility] [place], [address], 5 18:13:36 ketorolac 60 mg/2 mL intramuscul ar solution 2024 025 [email or web address] [id number] Not available 5 15:24:20 fluticasone propionate 50 mcg/actuati on nasal spray,suspe nsion 2023 025 [facility], [facility] [place], [address], 5 10:42:51 Patient TargetsNo targets recorded. Patient Instructions Encounter Date Encounter Id Patient Instructions Last Modified By Organization Details Last Modified Time 12/30/2023 [id number] Call or return for questions or concerns. Not available 12/30/2023 10:03:23 08/27/2024 [id number] Call or return for questions or concerns. Not available 08/27/2024 10:53:25 Reason for Referral None Reported. Results Created Date Observation Date Name Description Value Unit Range Abnormal Flag Note LastModifiedBy Organization Detail LastModifiedTime 11/03/19 24 11/03/2023 CBC WBC 12.5 x10 4.0-10 .5 high Not Available [facility] [address] [facility] [address], [place], [address], 11/03/2023 11:49:11 11/03/19 24 11/03/2023 CBC RBC 5.37 x10 3.50-5 .50 Not Available [facility] [address] [facility] [address], [place], [address], 11/03/2023 11:49:11 11/03/19 24 11/03/2023 CBC HGB 15.9 g/dL 12.0-1 6.0 Not Available [facility] [address] [facility] [address], [place], [address], 11/03/2023 11:49:11 11/03/19 24 11/03/2023 CBC HCT 46.5 % 37.0-4 7.0 Not Available [facility] [address] [facility] [address], [place], [address], 11/03/2023 11:49:11 11/03/19 24 11/03/2023 CBC MCV 86.5 fL 80.0-9 9.9 Not Available [facility] [address] [facility] [address], [place], [address], 11/03/2023 11:49:11 11/03/19 24 11/03/2023 CBC MCH 29.6 pg 27.0-3 2.0 Not Available [facility] [address] [facility], [place], [address], 11/03/2023 11:49:11 11/03/19 24 11/03/2023 CBC MCHC 34.2 g/dL 32.0-3 6.0 Not Available [facility] [address] [facility], [place], [address], 11/03/2023 11:49:11 11/03/19 24 11/03/2023 CBC RDW 13.9 % 11.5-1 4.5 Not Available [facility] [address] [facility], [place], [address], 11/03/2023 11:49:11 11/03/19 24 11/03/2023 CBC plt 355.2 x10 140.0- 451.0 Not Available [facility] [address] [facility], [place], [address], 11/03/2023 11:49:11 11/03/19 24 11/03/2023 CBC lymphocytes % 18.6 % 20.0-5 0.0 low Not Available [facility] [address] [facility], [place], [address], 11/03/2023 11:49:11 11/03/19 24 11/03/2023 CBC granulcytes % 74.0 % 30.0-7 0.0 high Not Available [facility] [address] [facility], [place], [address], 11/03/2023 11:49:11 11/03/19 24 11/03/2023 CBC monocytes % 6.0 % 2.0-16 .0 Not Available [facility] [address] [facility], [place], [address], 11/03/2023 11:49:11 11/03/19 24 11/03/2023 CBC granulcytes# 9.3 x10 Not Sunni ilable [facility] [address] [address], [place], [address], 11/03/2023 11:49:11 11/03/19 24 11/03/2023 CBC lymphocytes # 2.3 x10 Not Available [facility] [address] [address], [place], [address], 11/03/2023 11:49:11 11/03/19 24 11/03/2023 CBC monocytes # 0.8 x10 Not Avai lable [facility] [address] [address], [place], [address], 11/03/2023 11:49:11 11/03/19 24 11/03/2023 CMP (FEMA LE) glucose 198.0 mg/dL 60.0-9 9.0 high Not Available [facility] [address] [address], [place], [address], 11/03/2023 12:22:33 11/03/19 24 11/03/2023 CMP (FEMA LE) BUN (blood urea nitrogen) 18.0 mg/dL 10.0-2 6.0 Not Available [facility] [address] [address], [place], [address], 11/03/2023 12:22:33 11/03/19 24 11/03/2023 CMP (FEMA LE) creatinine (serum) 0.7 mg/dL 0.4-1. 5 Not Available [facility] [address] [address], [place], [address], 11/03/2023 12:22:33 11/03/19 24 11/03/2023 CMP (FEMA LE) BUN/creatini ne ratio 26.87 ratio Not Available [facility] [address] [place], [address], 11/03/2023 12:22:33 11/03/19 24 11/03/2023 CMP (FEMA LE) eGFR calculated 95.1 Not Available [facility] [address] [facility], [place], [address], 11/03/2023 12:22:33 11/03/19 24 11/03/2023 CMP (FEMA LE) total protein 8.1 g/dL 6.0-8. 5 Not Available [facility] [address] [facility], [place], [address], 11/03/2023 12:22:33 11/03/19 24 11/03/2023 CMP (FEMA LE) total bilirubin 0.6 mg/dL 0.2-1. 3 Not Available [facility] [address] [facility], [place], [address], 11/03/2023 12:22:33 11/03/19 24 11/03/2023 CMP (FEMA LE) albumin 5.1 g/dL 3.5-5. 5 Not Available [facility] [address] [facility], [place], [address], 11/03/2023 12:22:33 11/03/19 24 11/03/2023 CMP (FEMA LE) globulin 3.0 calc Not Available [facility] [address] [facility], [place], [address], 11/03/2023 12:22:33 11/03/19 24 11/03/2023 CMP (FEMA LE) AST (SGOT) 29.0 U/L 0.0-46 .0 Not Available [facility] [address] [facility], [place], [address], 11/03/2023 12:22:33 11/03/19 24 11/03/2023 CMP (FEMA LE) altv (SGPT) 30.0 U/L 13.0-6 9.0 normal Not Available [facility] [address] [facility], [place], [address], 11/03/2023 12:22:33 11/03/19 24 11/03/2023 CMP (FEMA LE) A/G ratio 1.7 ratio Not Available [facility] [address] [facility] [address], [place], [address], 11/03/2023 12:22:33 11/03/19 24 11/03/2023 CMP (FEMA LE) ALP phos 95.0 U/L 30.0-1 40.0 normal Not Available [facility] [address] [facility] [address], [place], [address], 11/03/2023 12:22:33 11/03/19 24 11/03/2023 CMP (FEMA LE) calcium 10.4 mg/dL 8.4-10 .5 Not Available [place] [facility] [address] [address], [place], [address], 11/03/2023 12:22:33 11/03/19 24 11/03/2023 CMP (FEMA LE) sodium 136.0 mmol/ L 136.0- 145.0 Not Available [facility] [address] [facility], [place], [address], 11/03/2023 12:22:33 11/03/19 24 11/03/2023 CMP (FEMA LE) potassium 4.1 mmol/ L 3.5-5. 1 Not Available [place] [facility] [address] [facility], [place], [address], 11/03/2023 12:22:33 11/03/19 24 11/03/2023 CMP (FEMA LE) chloride 103.0 mmol/ L 98.0-1 10.0 normal Not Available [facility] [address] [facility] [address], [place], [address], 11/03/2023 12:22:33 11/03/19 24 11/03/2023 CMP (FEMA LE) C02 23.0 mmol/ L 22.0-3 1.0 Not Available [facility] [address] [facility] [address], [place], [address], 11/03/2023 12:22:33 11/03/19 24 11/03/2023 CMP (FEMA LE) anion gap 10.0 calc Not Available [facility] [address] [facility] [address], [place], [address], 11/03/2023 12:22:33 11/03/19 24 11/03/2023 CMP (FEMA LE) osmolality 287.9 calc Not Available [facility] [address] [facility] [address], [place], [address], 11/03/2023 12:22:33 11/03/19 24 11/05/2023 TEST AUTHO RIZAT ION test name: FINA Holloway D,25-O H,OMER L,IA Not Available [facility] [address], [place], [address], 11/05/2023 08:20:20 11/03/19 24 11/05/2023 TEST AUTHO RIZAT ION test code: 74560G B Not Available [facility] [address], [place], [address], 11/05/2023 08:20:20 11/03/19 24 11/05/2023 TEST AUTHO RIZAT ION client contact: CALEB Jhony BEATRIS Not Available [facility] [address], [place], [address], 11/05/2023 08:20:20 11/03/19 24 11/05/2023 TEST AUTHO RIZAT ION report always message signature The labor wilian testi ng on this patie nt was verba lly reque sted or confi rmed by the order ing physi florencio or his or her autho rized repre senta tive after conta ct with an emplo baxter of [facility] sSubha Isamar al regul ation s requi re that we maint ain on file writt en autho rizat ion for all labor wilian testalyson ng. Accor dingl y we are askin g that the order ing physi florencio or his or her autho rized repre senta tive sign a copy of this repor t and promp tly retur n it to the clien t servi ce repre senta tive. Signa ture: __ Not Available [facility] [address] [address] [place], [address], 11/05/2023 08:20:20 11/03/19 24 11/05/2023 TEST AUTHO RIZAT ION comment Fax kasey r: [phone] Not Available [facility] [employer] [address] [address] [place], [address], 11/05/2023 08:20:20 11/03/19 24 11/05/2023 VITAM IN B12 vitamin B12 434 pg/mL 200-11 00 normal Not Available [facility] [address] [address] [place], [address], 11/05/2023 08:20:21 11/03/19 24 11/05/2023 CA 125 Ca 125 13 U/mL <35 normal This test was perfo rmed using the Siem[employer] ns Chem[employer] lumin escen t metho d. Value s obtai melinda from diffe rent assay metho ds canno t be used inter nicholson eably . CA 125 level s, regar dless of value , shoul d not be inter prete d as absol teri evide nce of the prese nce or absen ce of disea se. Not Available [facility] [address] [address] [place], [address], 11/05/2023 08:20:21 11/03/19 24 11/05/2023 VITAM IN D,25- OH,TO ROSEANNA,I A vitamin D,25-oh,tota l,ia 30 NG/mL 30-100 normal Vitam in D Statu s 25-OH Vitam in D: Defic iency : <20 ng/mL Insuf ficie ncy: 20 - 29 ng/mL Optim al: > or = 30 ng/mL For 25-OH Vitam in D testi ng on patie nts on D2-martinez pplem entat ion and patie nts for whom quant itati on of D2 and D3 fract ions is requi red, the [facility](TM ) 25-OH VIT D, (D2,D 3), LC/MS /MS is recom dom d: order code 71186 (piedad ents >2yrs ). See Note 1 Note 1 For addit ional infor martín ulloa refer to http: //allison Mayfieldia gnost ics.c om/fa q/FAQ 199 (This link is being provi ded for infor kaci salvador/ michelle harrington purpo ses only. ) Not Available [facility] [address] [address] [place], [address], 11/05/2023 08:20:21 11/03/19 24 11/03/2023 TSH, serum or plasm a TSH 1.26 uIU/m L 0.49-3 .82 normal Not Available [facility] ([facility]) [address] [place] [address], [address], 11/03/2023 11:22:21 12/30/19 24 12/30/2023 CBC WBC 11.1 x10 4.0-10 .5 high Not Available [facility] [address] [facility], [place], [address], 12/30/2023 10:54:29 12/30/19 24 12/30/2023 CBC RBC 5.17 x10 3.50-5 .50 Not Available [facility] [address] [facility], [place], [address], 12/30/2023 10:54:29 12/30/19 24 12/30/2023 CBC HGB 15.8 g/dL 12.0-1 6.0 Not Available [facility] [address] [facility], [place], [address], 12/30/2023 10:54:29 12/30/19 24 12/30/2023 CBC HCT 45.0 % 37.0-4 7.0 Not Available [facility] [address] [facility], [place], [address], 12/30/2023 10:54:29 12/30/19 24 12/30/2023 CBC MCV 87.0 fL 80.0-9 9.9 Not Available [facility] [address] [facility], [place], [address], 12/30/2023 10:54:29 12/30/19 24 12/30/2023 CBC MCH 30.5 pg 27.0-3 2.0 Not Available [facility] [address] [facility], [place], [address], 12/30/2023 10:54:29 12/30/19 24 12/30/2023 CBC MCHC 35.0 g/dL 32.0-3 6.0 Not Available [facility] [address] [facility], [place], [address], 12/30/2023 10:54:29 12/30/19 24 12/30/2023 CBC RDW 13.6 % 11.5-1 4.5 Not Available [facility] [address] [facility], [place], [address], 12/30/2023 10:54:29 12/30/19 24 12/30/2023 CBC plt 302.8 x10 140.0- 451.0 Not Available [facility] [address] [facility], [place], [address], 12/30/2023 10:54:29 12/30/19 24 12/30/2023 CBC lymphocytes % 24.6 % 20.0-5 0.0 Not Available [facility] [address] [facility], [place], [address], 12/30/2023 10:54:29 12/30/19 24 12/30/2023 CBC granulcytes % 66.6 % 30.0-7 0.0 Not Available [facility] [address] [facility], [place], [address], 12/30/2023 10:54:29 12/30/19 24 12/30/2023 CBC monocytes % 6.3 % 2.0-16 .0 Not Available [facility] [address] [facility], [place], [address], 12/30/2023 10:54:29 12/30/19 24 12/30/2023 CBC granulcytes# 7.4 x10 Not Sunni ilable [facility] [address] [facility], [place], [address], 12/30/2023 10:54:29 12/30/19 24 12/30/2023 CBC lymphocytes # 2.7 x10 Not Available [facility] [address] [facility], [place], [address], 12/30/2023 10:54:29 12/30/19 24 12/30/2023 CBC monocytes # 0.7 x10 Not Avai lable [facility] [address] [facility], [place], [address], 12/30/2023 10:54:29 12/30/19 24 12/30/2023 URINA LYSIS WITH MICRO color DARK YELLOW Not Available [facility] [address] [facility], [place], [address], 12/30/2023 11:04:54 12/30/19 24 12/30/2023 URINA LYSIS WITH MICRO clarity CLEAR Not Available [facility] [address] [facility], [place], [address], 12/30/2023 11:04:54 12/30/19 24 12/30/2023 URINA LYSIS WITH MICRO glu NEGATI VE Not Available [facility] [address] [facility], [place], [address], 12/30/2023 11:04:54 12/30/19 24 12/30/2023 URINA LYSIS WITH MICRO bili 1+ high Not Available [facility] [address] [facility], [place], [address], 12/30/2023 11:04:54 12/30/19 24 12/30/2023 URINA LYSIS WITH MICRO ket NEGATI VE Not Available [facility] [address] [facility], [place], [address], 12/30/2023 11:04:54 12/30/19 24 12/30/2023 URINA LYSIS WITH MICRO S.g 1.030 1.005- 1.025 high Not Available [facility] [address] [facility], [place], [address], 12/30/2023 11:04:54 12/30/19 24 12/30/2023 URINA LYSIS WITH MICRO pH 5.5 5.0-7. 0 Not Available [facility] [address], [place], [address], 12/30/2023 11:04:54 12/30/19 24 12/30/2023 URINA LYSIS WITH MICRO pro 1+ high Not Available [facility] [address], [place], [address], 12/30/2023 11:04:54 12/30/19 24 12/30/2023 URINA LYSIS WITH MICRO uro 1.0 Not Available [facility] [address], [place], [address], 12/30/2023 11:04:54 12/30/19 24 12/30/2023 URINA LYSIS WITH MICRO nit NEGATI VE Not Available [facility] [address], [place], [address], 12/30/2023 11:04:54 12/30/19 24 12/30/2023 URINA LYSIS WITH MICRO blo NEGATI VE Not Available [facility] [address], [place], [address], 12/30/2023 11:04:54 12/30/19 24 12/30/2023 URINA LYSIS WITH MICRO bel 1+ high Not Available [facility] [address], [place], [address], 12/30/2023 11:04:54 12/30/19 24 12/30/2023 URINA LYSIS WITH MICRO WBC 8-10 abnormal Not Available [facility] [address], [place], [address], 12/30/2023 11:04:54 12/30/19 24 12/30/2023 URINA LYSIS WITH MICRO RBC NEGATI VE Not Available [facility] [address], [place], [address], 12/30/2023 11:04:54 12/30/19 24 12/30/2023 URINA LYSIS WITH MICRO epi cells 1-3 Not Available [facility] [address] [facility] [address], [place], [address], 12/30/2023 11:04:54 12/30/19 24 12/30/2023 URINA LYSIS WITH MICRO bacteria 2+ AMORPH OUS abnormal Not Available [facility] [address], [place], [address], 12/30/2023 11:04:54 12/30/19 24 12/30/2023 URINA LYSIS WITH MICRO other NEGATI VE Not Available [facility] [address] [facility] [address], [place], [address], 12/30/2023 11:04:54 12/30/19 24 12/31/2023 COMPR EHENS ANISH METAB OLIC PANEL glucose 91 mg/dL 65-99 normal Fasti ng refer ence inter tae Not Available [address] [address] [place], [address], 12/31/2023 21:42:29 12/30/19 24 12/31/2023 COMPR EHENS ANISH METAB OLIC PANEL urea nitrogen (BUN) 15 mg/dL 7-25 normal Not Available [facility] [address] [address] [place], [address], 12/31/2023 21:42:29 12/30/19 24 12/31/2023 COMPR EHENS ANISH METAB OLIC PANEL creatinine 0.65 mg/dL 0.50-1 .05 normal Not Available [facility] [address] [address] [place], [address], 12/31/2023 21:42:29 12/30/19 24 12/31/2023 COMPR EHENS ANISH METAB OLIC PANEL eGFR 100 mL/mi n/1.7 3m2 > or = 60 normal Not Available [address], [address], 12/31/2023 21:42:29 12/30/19 24 12/31/2023 COMPR EHENS ANISH METAB OLIC PANEL BUN/creatini ne ratio SEE NOTE: (calc ) 6-22 Not Repor pricila: BUN and Creat inine are withi n refer ence range . Not Available [address], [address], 12/31/2023 21:42:29 12/30/19 24 12/31/2023 COMPR EHENS ANISH METAB OLIC PANEL sodium 136 mmol/ L 135-14 6 normal Not Available [address], [address], 12/31/2023 21:42:29 12/30/19 24 12/31/2023 COMPR EHENS ANISH METAB OLIC PANEL potassium 4.2 mmol/ L 3.5-5. 3 normal Not Available [address], [address], 12/31/2023 21:42:29 12/30/19 24 12/31/2023 COMPR EHENS ANISH METAB OLIC PANEL chloride 99 mmol/ L 98-110 normal Not Available [address], [address], 12/31/2023 21:42:29 12/30/19 24 12/31/2023 COMPR EHENS ANISH METAB OLIC PANEL carbon dioxide 29 mmol/ L 20-32 normal Not Available [address], [address], 12/31/2023 21:42:29 12/30/19 24 12/31/2023 COMPR EHENS ANISH METAB OLIC PANEL calcium 10.5 mg/dL 8.6-10 .4 high Not Available [facility] [address], [address], 12/31/2023 21:42:29 12/30/19 24 12/31/2023 COMPR EHENS ANISH METAB OLIC PANEL protein, total 6.9 g/dL 6.1-8. 1 normal Not Available [address], [address], 12/31/2023 21:42:29 12/30/19 24 12/31/2023 COMPR EHENS ANISH METAB OLIC PANEL albumin 4.6 g/dL 3.6-5. 1 normal Not Available [address], [address], 12/31/2023 21:42:29 12/30/19 24 12/31/2023 COMPR EHENS ANISH METAB OLIC PANEL globulin 2.3 g/dL_ (calc ) 1.9-3. 7 normal Not Available [address], [address], 12/31/2023 21:42:29 12/30/19 24 12/31/2023 COMPR EHENS ANISH METAB OLIC PANEL albumin/glob ulin ratio 2.0 (calc ) 1.0-2. 5 normal Not Available [address], [address], 12/31/2023 21:42:29 12/30/19 24 12/31/2023 COMPR EHENS ANISH METAB OLIC PANEL bilirubin, total 0.7 mg/dL 0.2-1. 2 normal Not Available [address], [address], 12/31/2023 21:42:29 12/30/19 24 12/31/2023 COMPR EHENS ANISH METAB OLIC PANEL alkaline phosphatase 68 U/L 37-153 normal Not Available [place] [address] [place], [address], 12/31/2023 21:42:29 12/30/19 24 12/31/2023 COMPR EHENS ANISH METAB OLIC PANEL AST 19 U/L 10-35 normal Not Available [address], [address], 12/31/2023 21:42:29 12/30/19 24 12/31/2023 COMPR EHENS ANISH METAB OLIC PANEL ALT 23 U/L 6-29 normal Not Available [facility] [address], [address], 12/31/2023 21:42:29 12/30/19 24 12/31/2023 CULTU RE, URINE , ROUTI NE culture, urine, routine SEE NOTE CULTU RE, URINE , ROUTI NE Micro Numbe r: [id number] Test Statu s: Final Speci men Sourc e: Urine Speci men Quali ty: Adequ ate Resul t: Mixed genit al nina isola pricila. These super ficia l bacte ninoska are not indic ative of a urina ry tract infec tion. No furth er organ ism ident ifica tion is warra nted on this speci men. If clini yohannes indic ated, recol lect clean -catc h, mid-s tream urine and trans heather immed iatel y to Urine Cultu re Trans port Tube. Not Available [address], [address], 12/31/2023 21:42:30 12/30/19 24 12/30/2023 HbA1c (hemo globi n A1c), blood HbA1c 6.6 Not Available [facility] ([facility]) [address] [place] [address], [address], 12/30/2023 10:01:56 02/06/20 24 02/06/2024 calci um, blood calcium 10.1 Not Available [facility] ([facility]) [address] [place] [address], [phone], 02/06/2024 11:58:26 08/28/19 25 08/27/2024 CBC WBC 10.3 x10 4.0-10 .5 Not Available [facility] [address] [facility], [place], [address], 08/27/2024 11:38:46 08/28/19 25 08/27/2024 CBC RBC 5.23 x10 3.50-5 .50 Not Available [facility] [address] [facility], [place], [address], 08/27/2024 11:38:46 08/28/19 25 08/27/2024 CBC HGB 15.2 g/dL 12.0-1 6.0 Not Available [facility] [address] [facility], [place], [address], 08/27/2024 11:38:46 08/28/19 25 08/27/2024 CBC HCT 46.0 % 37.0-4 7.0 Not Available [facility] [address] [facility], [place], [address], 08/27/2024 11:38:46 08/28/19 25 08/27/2024 CBC MCV 87.9 fL 80.0-9 9.9 Not Available [facility] [address] [facility], [place], [address], 08/27/2024 11:38:46 08/28/19 25 08/27/2024 CBC MCH 29.0 pg 27.0-3 2.0 Not Available [facility] [address] [facility], [place], [address], 08/27/2024 11:38:46 08/28/19 25 08/27/2024 CBC MCHC 33.0 g/dL 32.0-3 6.0 Not Available [facility] [address] [address], [place], [address], 08/27/2024 11:38:46 08/28/19 25 08/27/2024 CBC RDW 13.9 % 11.5-1 4.5 Not Available [facility] [address] [address], [place], [address], 08/27/2024 11:38:46 08/28/19 25 08/27/2024 CBC plt 333.9 x10 140.0- 451.0 Not Available [facility] [address] [address], [place], [address], 08/27/2024 11:38:46 08/28/19 25 08/27/2024 CBC lymphocytes % 23.4 % 20.0-5 0.0 Not Available [facility] [address] [address], [place], [address], 08/27/2024 11:38:46 08/28/19 25 08/27/2024 CBC granulcytes % 68.1 % 30.0-7 0.0 Not Available [facility] [address] [address], [place], [address], 08/27/2024 11:38:46 08/28/19 25 08/27/2024 CBC monocytes % 6.1 % 2.0-16 .0 Not Available [facility] [address] [address], [place], [address], 08/27/2024 11:38:46 08/28/19 25 08/27/2024 CBC granulcytes# 7.0 x10 Not Sunni ilable [facility] [address] [address], [place], [address], 08/27/2024 11:38:46 08/28/19 25 08/27/2024 CBC lymphocytes # 2.4 x10 Not Available [facility] [address] [facility] [address], [place], [address], 08/27/2024 11:38:46 08/28/19 25 08/27/2024 CBC monocytes # 0.6 x10 Not Avai lable [facility] [address] [facility] [address], [place], [address], 08/27/2024 11:38:46 08/28/19 25 08/27/2024 HBA1C hemaglobin A1C 7.3 4.2-6. 5 high Not Available [facility] [address] [facility] [address], [place], [address], 08/27/2024 11:39:59 08/28/19 25 08/27/2024 CMP (FEMA LE) glucose 146.0 mg/dL 60.0-9 9.0 high Not Available [facility] [address] [address], [place], [address], 08/27/2024 12:00:13 08/28/19 25 08/27/2024 CMP (FEMA LE) BUN (blood urea nitrogen) 14.0 mg/dL 10.0-2 6.0 Not Available [facility] [address] [address], [place], [address], 08/27/2024 12:00:13 08/28/19 25 08/27/2024 CMP (FEMA LE) creatinine (serum) 0.6 mg/dL 0.4-1. 5 Not Available [facility] [address] [address], [place], [address], 08/27/2024 12:00:13 08/28/19 25 08/27/2024 CMP (FEMA LE) BUN/creatini ne ratio 23.33 ratio Not Available [facility] [address] [address], [place], [address], 08/27/2024 12:00:13 08/28/19 25 08/27/2024 CMP (FEMA LE) eGFR calculated 107.7 Not Available [facility] [address] [facility] [address], [place], [address], 08/27/2024 12:00:13 08/28/19 25 08/27/2024 CMP (FEMA LE) total protein 7.9 g/dL 6.0-8. 5 Not Available [facility] [address] [facility] [address], [place], [address], 08/27/2024 12:00:13 08/28/1908/27/2024 CMP (FEMA LE) total bilirubin 0.9 mg/dL 0.2-1. 3 Not Available [facility] [address] [facility] [address], [place], [address], 08/27/2024 12:00:13 08/28/19 25 08/27/2024 CMP (FEMA LE) albumin 4.6 g/dL 3.5-5. 5 Not Available [facility] [address] [facility] [address], [place], [address], 08/27/2024 12:00:13 08/28/1908/27/2024 CMP (FEMA LE) globulin 3.3 calc Not Available [facility] [address] [facility] [address], [place], [address], 08/27/2024 12:00:13 08/28/19 25 08/27/2024 CMP (FEMA LE) AST (SGOT) 28.0 U/L 0.0-46 .0 Not Available [facility] [address] [facility] [address], [place], [address], 08/27/2024 12:00:13 08/28/19 25 08/27/2024 CMP (FEMA LE) altv (SGPT) 30.0 U/L 13.0-6 9.0 normal Not Available [facility] [address] [facility] [address], [place], [address], 08/27/2024 12:00:13 08/28/19 25 08/27/2024 CMP (FEMA LE) A/G ratio 1.4 ratio Not Available [facility] [address] [facility] [address], [place], [address], 08/27/2024 12:00:13 08/28/19 25 08/27/2024 CMP (FEMA LE) ALP phos 84.0 U/L 30.0-1 40.0 normal Not Available [facility] [address] [facility] [address], [place], [address], 08/27/2024 12:00:13 08/28/19 25 08/27/2024 CMP (FEMA LE) calcium 10.0 mg/dL 8.4-10 .5 Not Available [facility] [address] [facility] [address], [place], [address], 08/27/2024 12:00:13 08/28/19 25 08/27/2024 CMP (FEMA LE) sodium 138.0 mmol/ L 136.0- 145.0 Not Available [facility] [address] [facility] [address], [place], [address], 08/27/2024 12:00:13 08/28/19 25 08/27/2024 CMP (FEMA LE) potassium 3.9 mmol/ L 3.5-5. 1 Not Available [facility] [address] [facility] [address], [place], [address], 08/27/2024 12:00:13 08/28/19 25 08/27/2024 CMP (FEMA LE) chloride 101.0 mmol/ L 98.0-1 10.0 normal Not Available [facility] [address] [facility] [address], [place], [address], 08/27/2024 12:00:13 08/28/19 25 08/27/2024 CMP (FEMA LE) C02 28.0 mmol/ L 22.0-3 1.0 Not Available [facility] [address] [facility] [address], [place], [address], 08/27/2024 12:00:13 08/28/1908/27/2024 CMP (FEMA LE) anion gap 9.0 calc Not Available [facility] [address] [facility] [address], [place], [address], 08/27/2024 12:00:13 08/28/1908/27/2024 CMP (FEMA LE) osmolality 288.0 calc Not Available [facility] [address] [facility] [address], [place], [address], 08/27/2024 12:00:13 08/28/19 25 08/27/2024 LIPID PROFI LE (FEMA LE) cholesterol 146.0 mg/dL 0.0-20 0.0 Not Available [facility] [address] [facility] [address], [place], [address], 08/27/2024 12:00:16 08/28/1908/27/2024 LIPID PROFI LE (FEMA LE) trig 125.0 mg/dL 0.0-15 0.0 Not Available [facility] [address] [facility] [address], [place], [address], 08/27/2024 12:00:16 08/28/1908/27/2024 LIPID PROFI LE (FEMA LE) HDL - direct 60.0 mg/dL >40.0 Not Available [facility] [address] [facility] [address], [place], [address], 08/27/2024 12:00:16 08/28/19 25 08/27/2024 LIPID PROFI LE (FEMA LE) VLDL - direct 25.0 mg/dL Not Available [facility] [address] [facility] [address], [place], [address], 08/27/2024 12:00:16 08/28/19 25 08/27/2024 LIPID PROFI LE (FEMA LE) LDL - direct 61.0 mg/dL 0.0-13 0.0 Not Available [facility] [address] [facility] [address], [place], [address], 08/27/2024 12:00:16 08/28/1908/27/2024 TSH TSH 1.74 uIU/m L 0.49-3 .82 Not Available [facility] [address] [facility] [address], [place], [address], 08/27/2024 12:26:53 08/28/19 25 08/28/2024 ALBUM IN, RANDO M URINE W/CRE ATINI NE creatinine, random urine 121 mg/dL 20-[address] [facility] [address] [place], [address], 08/28/2024 06:49:40 08/28/19 25 08/28/2024 ALBUM IN, RANDO M URINE W/CRE ATINI NE albumin, urine 0.9 mg/dL see note: normal Refer ence Range : Refer ence Range Not estab lishe d Not Available [facility] [address] [place], [address], 08/28/2024 06:49:40 08/28/1908/28/2024 ALBUM IN, RANDO M URINE W/CRE ATINI NE albumin/crea tinine ratio, random urine 7 mg/g_ creat <30 normal The ADA defin es abnor malit ies in album in excre tion as follo ws: Album inuri a Categ ory Resul t (mg/g creat inine ) Lashae l to Mildl y incre ased <30 Moder ately incre ased 30-29 9 Sever yariel incre ased > OR = 300 The ADA recom mends that at least two of three speci mens colle cted withi n a 3-6 month perio d be abnor mal befor e consi kenji g a patie nt to be withi n a diagn ostic categ ory. Not Available [facility] [address] [place], [address], 08/28/2024 06:49:40 02/02/20 24 02/02/2024 MAMMO , scree bridget, digit al, bilat eral No observ ation record ed. [email or web address] [address] [place], [address], 02/02/2024 16:26:32 03/12/20 24 03/12/2024 bone densi ty No observ ation record ed. [email or web address] [address] [place], [address], 03/14/2024 09:00:37 04/27/19 25 04/27/2024 XR, hip + pelvi s, unila teral , 2 or 3 view No observ ation record ed. [email or web address] [facility] [address] [place], [address], 04/28/2024 12:34:10 05/02/19 25 05/01/2024 US, hip No observ ation record ed. [email or web address] [facility] [address] [facility] [address], [place], [address], 05/02/2024 14:27:33 05/02/19 25 05/01/2024 US, hip No observ ation record ed. [email or web address] [facility] [address] [place], [address], 05/02/2024 14:19:59 10/17/19 25 10/16/2024 FL, modif ied maria g molina ow study No observ ation record ed. [facility] [address] [place], [address], 10/16/2024 15:29:02 Result Notes Documentation Provider Name and Address Organization Details Recorded Time Mammo, Screening, Digital, Bilateral : Mammogram Mammogram Context: mammogram date: (02/02/2024) Right: normal Left: normal Conclusion: Conclusions: Bi-Rads 2 - Benign Findings [facility], [facility] [address] [place], [address], [facility] 02/02/2024 16:26:32 Problems Name Problem SNOMED Code Status Onset Date Resolution Date Notes Provider Name and Address Organization Details Recorded Time Cough 89929839 Completed 201804/10/2019 COUGH - Status is Inactive ; Recorded 04/10/20 19 4:12PM by Verona Dykes CMT, Annotati on/Jae dum; Promoted ; acuity set as *; Not Available [facility] 03:16:23 Neuropat hy 121503592 Active 2022 VERONA bravo [facility] 4 08:19:42 [facility] l hyperten laurie 54847443 Active 2022 VERONA bravo [facility] 4 08:19:29 Malignan t neoplasm of uterus 233910315 Active 2023 VERONA bravo [facility] 4 08:19:38 Type 2 diabetes mellitus 68140404 Active 2023 VERONA bravo [facility] 4 08:19:24 Vitamin D deficien cy 51015819 Active 2024 VREONA bravo [facility] 5 10:20:31 Problem Notes None recorded. Procedures Surgical History Date Name Laterality Status Provider Name and Address Organization Details Recorded Time 10/17/19 25 barium swallow completed [facility] 10/16/2024 14:23:13 03/12/20 24 bone density scan completed [facility] LSubhaL.CS[facility]ha 03/13/2024 19:04:09 02/02/20 24 screening mammography completed [facility] L[facility] 02/02/2024 16:16:41 01/14/20 23 screening mammography completed [facility] 01/18/2023 16:35:02 08/28/19 21 Hysterectomy completed [facility] 06/28/2023 17:31:11 08/28/19 21 Oophorectomy completed [facility] 06/28/2023 17:31:56 Cholecystectomy completed [facility] 06/28/2023 17:32:53 section completed [facility] 06/28/2023 17:33:07 Imaging Results None recorded. Procedure Notes None recorded. Medical Equipment None Reported. Allergies Allergen ID Allergen Name Allergen Category Reaction Reaction Severity Criticality Documentation Date Start Date Code Code System Note Provider Name and Address Organization Details Recorded Time 36423 lisinopri l medicatio n cough mild low 11/20/2022 78845 RxNorm Teresa Garcia [facility], [facility] 4 07:48:55 65661 Betadine medicatio n other Not available Not available 11/20/202238964 0 RxNorm [facility]ISE DYKES [facility] 4 08:18:42 Medications Name Sig Start Date Stop Date Status Note LastModified by Organization Details LastModified Time losartan 50 mg tablet TAKE 1 TABLET BY MOUTH EVERY DAY 08/27 completed Not Available Not Available Not Available atorvasta tin 20 mg tablet TAKE 1 TABLET BY MOUTH EVERY EVENING active Not Available Not Available No t Available glyburide 2.5 mg tablet TAKE 1 TABLET BY MOUTH EVERY DAY need appointm ent active Not Available Not Available No t Available aspirin 81 mg tablet,de layed release Take 1 tablet every day by oral route. active Not Available Not Available No t Available tramadol 50 mg tablet TAKE 1 TABLET BY MOUTH EVERY 4 HOURS NEEDED FOR 30 DAYS 2024 active Not Available Not Available Not Avai lable spironola ctone 25 mg tablet TAKE 1 TABLET BY MOUTH EVERY DAY active Not Available Not Available No t Available amoxicill in 500 mg tablet Take 1 tablet every 8 hours by oral route. 04/20 completed Not Available Not Available Not Available OneTouch Ultra Test strips test ONCE daily 08/27 completed Not Available Not Available Not Available amlodipin e 10 mg tablet TAKE 1 TABLET BY MOUTH EVERY DAY active Not Available Not Available No t Available hydrocodo ne 7.5 mg-acetam inophen 325 mg tablet TAKE 1 TABLET BY MOUTH EVERY 4 HOURS NEEDED FOR PAIN 04/20 completed Not Available Not Available Not Available losartan 25 mg tablet TAKE 1 TABLET BY MOUTH DAILY active Not Available Not Available No t Available gabapenti n 100 mg capsule take 1 capsule BY MOUTH THREE TIMES DAILY FOR 30 DAYS active Not Available Not Available No t Available metoprolo l succinate ER 25 mg tablet,ex tended release 24 hr TAKE 1/2 (ONE-KERLINE F) TABLET BY MOUTH ONCE DAILY 12/28 completed Not Available Not Available Not Available ketorolac 60 mg/2 mL intramusc ular solution Inject 60 mg by intramus cular route. 08/07 completed IM x 1 now. Not Available Not Available Not Available fluticaso ne propionat e 50 mcg/actua tion nasal spray,rohan pension USE 1 SPRAY INTRANSA L EVERY DAY 08/27 completed Not Available Not Available Not Available metformin ER 500 mg tablet,ex tended release 24 hr TAKE 2 TABLETS BY MOUTH EVERY DAY active Not Available Not Available No t Available amlodipin e besylate (bulk) daily 12/28 completed 29000; Recorded 08/20/19 11:18AM by Verona Dykes CMT (Authori jeanine through AYLEEN Coyle), Refill Request; Refill Quantity : 90; Tablet; Not Available Not Available Not Available Vitamin D3 125 mcg (5,000 unit) tablet Take 1 tablet every day by oral route. active Not Available Not Available No t Available OneTouch Ultra2 Meter test ONCE daily 08/27 completed Not Available Not Available Not Available OneTouch Delica Plus Lancet 33 gauge USE THREE TIMES DAILY 08/27 completed Not Available Not Available Not Available losartan potassium (bulk) daily 12/28 completed Recorded 06/17/19 8:24AM by Verona Dykes CMT, Office Visit; Refill Quantity : 90; Tablet; Not Available Not Available Not Available Vitals Date Recorded Body height Body mass index (BMI) Body weight Oxygen saturation Oxygen saturation in Arterial blood by Pulse oximetry Heart rate Body temperature Systolic blood pressure Diastolic blood pressure Provider Name and Address Organization Details Last Updated DateTime 5 151.13 cm 32.1 kg/m2 57911.8 1 g 99 % 99 % 78 /min 98.6 [degF] 146 mm[Hg] 90 mm[Hg] Sarika Conti [facility] 5 09:14:05 Date Recorded Body height Body mass index (BMI) Body weight Oxygen saturation Oxygen saturation in Arterial blood by Pulse oximetry Heart rate Respiratory rate Systolic blood pressure Diastolic blood pressure Provider Name and Address Organization Details Last Updated DateTime 5 151.13 cm 33.4 kg/m2 83872.5 2 g 97 % 97 % 94 /min 18 /min 132 mm[Hg] 76 mm[Hg] VERONA DYKES [facility] 5 10:12:35 Date Recorded Body height Body mass index (BMI) Body weight Oxygen saturation Oxygen saturation in Arterial blood by Pulse oximetry Heart rate Respiratory rate Body temperature Systolic blood pressure Diastolic blood pressure Provider Name and Address Organization Details Last Updated DateTime 4 151.13 cm 31.9 kg/m2 44613.6 5 g 98 % 98 % 101 /min 18 /min 97.8 [degF] 122 mm[Hg] 76 mm[Hg] Kathleen Cabrera [facility] 4 10:57:51 Date Recorded Body height Body mass index (BMI) Body weight Oxygen saturation Oxygen saturation in Arterial blood by Pulse oximetry Heart rate Respiratory rate Body temperature Systolic blood pressure Diastolic blood pressure Provider Name and Address Organization Details Last Updated DateTime 4 151.13 cm 32 kg/m2 52760.3 7 g 98 % 98 % 80 /min 20 /min 98 [degF] 138 mm[Hg] 80 mm[Hg] DARWIN MAURER [facility] 4 09:42:45 Social History Question Answer Notes LastModified by [email or web address] ion Details LastModified Time Tobacco Smoking Status Never Smoker VERONA bravo [facility] 06/28/2023 17:29:36 What Is Your Level Of Caffeine Consumption? Moderate [email or web address] Information not available 08/27/2024 What Was The Date Of Your Most Recent Tobacco Screening? 08/27/2024 Information not available 08/27/2024 What Is Your Relationship Status? Single [email or web address] Information not available 06/28/2023 Sex: Unknown Functional Status Question Answer Note LastModified by [email or web address] ion Details LastModified Time Do you use any illicit or recreational drugs? No [email or web address] Information not available 06/28/2023 Do you or have you ever used any other forms of tobacco or nicotine? No Information not available 08/27/2024 What is your level of alcohol consumption? None Information not available 06/28/2023 Are you currently employed? Yes [email or web address] Information not available 06/28/2023 Are you able to walk? YESWOREST [email or web address] Information not available 08/27/2024 Are you able to care for yourself? Yes [email or web address] Information n ot available 06/28/2023 Do you or have you ever used any nicotine-free cigarettes, vape, or chewing tobacco? No Information not available 08/27/2024 Mental Status None recorded. Family History Relationship Description Onset Age of this Age Resolved Age Notes LastModified by Organization Details LastModified Time Father Type 1 diabetes mellitus age 70 [email or web address] Not available 08/27/2024 10:21:19 Father Malignant neoplasm of lung [email or web address] Not available 08/27 10:21:30 Mother Essential hypertension [email or web address] Not available 10:21:46 Mother Hiatal hernia [email or web address] Not available 08/27 10:22:13 Medical History Condition Response Ovarian Cancer Y Cancer Y Anemia Y Hypertension Y High Cholesterol Y Gynecological HistoryNo gynecological history recorded. Obstetrics History GPAL:G 0 P 0 0 0 0 Immunizations Vaccine Type Date Status Note Provider Nam e and Address Organization Details Recorded Time zoster recombinant 1 completed [facility], [address], [address], [facility] 12/28/2022 13:13:16 zoster recombinant 1 richardson [facility] [address], [address], [facility] 12/28/2022 13:13:16 COVID-19, mRNA, LNP-S, PF, 30 mcg/0.3 mL dose 1 richardson [facility] [address], [address], [facility] 12/28/2022 13:13:16 COVID-19, mRNA, LNP-S, PF, 30 mcg/0.3 mL dose 1 completed [facility] [address], [address], [facility] 12/28/2022 13:13:16 COVID-19, mRNA, LNP-S, PF, 30 mcg/0.3 mL dose 1 richardson E[facility] [employer] [address] [place], [address], [facility] 12/28/2022 13:13:16 Tdap 1 completed [facility], [facility] [address] [place], [address], [facility] 12/28/2022 13:13:16 Influenza, split virus, trivalent, preservative 2 completed [facility], [address], [address], [facility] 12/28/2022 13:13:16 Influenza, split virus, trivalent, preservative 1 completed [facility], [address], [address], [facility] 12/28/2022 13:13:16 Influenza, split virus, trivalent, preservative 3 completed [facility], [address], [address], [facility] 04/20/2023 10:27:41 Influenza, split virus, trivalent, PF 4 completed [facility] 08/27/2024 09:52:09 Influenza, split virus, trivalent, preservative 0 completed [facility], [address], [address], [facility] 04/20/2023 10:27:41 Past Encounters Encounter ID Performer Location Encounter Start Date Encounter Closed Date Diagnosis/Indication Diagnosis SNOMED-CT Code Diagnosis ICD10 Code Diagnosis Note [id number] [facility] [address] [place] [address] 12/28/2022 12:24:25 12/28/2022 18:44:05 Essential hypertension 40817567 I10 She has stopped her lovastatin but will add it back. Uterine leiomyoma 516716 [address] Tang. Screening colonoscopy 44 8709553 Z12.[address] Yun. Hyperglycemia 97410295 R 73.9 Neuropathy 858239922 G62 .9 Hearing difficulty 03485 0000 H91.90 Declines referral at this time. [id number] [facility] [employer] [facility] ([facility]) [address] [place] [id number] 04/20/2023 09:45:35 04/20/2023 11:41:08 Diabetes mellitus 04307103 E11.65 Essential hypertension 71464686 I10 Blood pressure improved over last visit. Will continue to monitor. [id number] AYLEEN VALLE [facility]) [address] [place] [id number] 06/29/2023 09:31:47 06/29/2023 10:28:19 Essential hypertension 45034041 I10 Blood pressure improved over last visit. Will continue to monitor. Neuropathy 791009615 G62 .9 Tramadol helping with pain. Diabetes mellitus 598456 09 E11.65 Sugars have been doing good. Seasonal a llergic rhinitis 305503649 J30.2 Advised Zyrtec or Claritin. [id number] Rasta Peraza MD [facility] ([facility]) [address] [place] [id number] 11/03/2023 10:45:26 11/03/2023 11:43:42 Fatigue 84857123 R53.83 We will start with labs today. And include a CA125 given her history. We will send results to her PCP for follow-up. Posterior rhinorrhea 758 [address]4567 R09.82 Patient does have postnasal drainage and that may suggest a viral upper respirator y infection that was made potentiall y contribute to the patient's symptoms. Patient was encouraged to drink plenty of fluids and use over-the-c ounter medication to help with symptoms. Recommend starting Flonase Malignant neoplasm of uterus 255550957 C55 [id number] [facility] ([facility]) [address] [place] [id number] 12/30/2023 09:29:25 12/30/2023 10:18:27 Type 2 diabetes mellitus without complication 570271506 E11.9 Essential hypertension [id number] I10 Blood pressure improved over last visit. Will continue to monitor. Pain in ri ght lower limb [id number] M79.604 Improved. Will try some Ibuprofen. Inguinal pain [id number] R10.2 Screening for osteoporosis [id number] Z13.937 [id number] [facility] ([facility]) [address] [place] [address] [phone] 04/27/2024 09:05:05 04/27/2024 09:50:53 Pain of right hip joint [id number] M25.551 Will order imaging today. WIll have follow up with PCP Umm Easton. [id number] [facility] ([facility]) [address] [place] [address] [phone] 05/01/2024 09:43:32 05/02/2024 12:53:34 [id number] [facility] ([facility]) [address] [place] [address] [phone] 08/27/2024 09:50:19 08/27/2024 11:02:47 Type 2 diabetes mellitus [id number] E11.65 E11.42 She will schedule an eye exam. Essential hypertension [id number] I10 Blood pressure improved over last visit. Will continue to monitor. Difficulty swallowing solids [id number] R13.10 Will make referral for EGD following study results. Feels like foods get stuck in her chest. Health Concerns Section Related Observation LastModified by Organization Detai ls LastModified Time None Recorded Concern Status LastModified by Organization Details LastModified Time None Recorded Advance Directives Directive None Recorded Payers Insurance Date Sequence Insurance Name Policy Number Policy Leroy Covered Member ID Leroy Member ID Guarantor Name 08/24/2024 1 [facility] [id number] [facility] [id number] [facility] Notes Date Note Type Note Provider Name and Address Organization Details Recorded Time 4 text/html FatigueReported bypatient.Quality:generaliz ed Severity:change in sleep patterns;changes in normal activities;worsening; moderate Duration:acute; intermittent; <1 month Associated Symptoms:anxiety walk in patientPatient reports feeling awful this morning when she got up. She has been having extreme fatigue, Sweating chills, headaches, that has been getting worse over the last few weeks. Patient is concerned about recurrent pelvic cancer given the menopause like symptoms. Rasta Peraza MD [address] [place] [address], [phone], [facility] 11/06/2023 17:37:03 4 text/html DiabetesReported bypatient.Duration:chronic Control:usually well controlled; treated with diet and oral medications Compliance:compliant with medications; compliant with follow-up visits; compliant with dietMusculoskeletal PainReported bypatient.Location:right hip; right knee Quality:sharp;tingling;dull Severity:worsening;interfer es with sleep;interferes with work/school Duration:present <1 month; started 2-3 days Timing:constant; sudden Alleviating Factors:rest; changing position Aggravating factors:movement/positionin g; bending over; twisting Associated Symptoms:weak limbs ADLs Affected:walking; sweeping; mopping; bathing; dressing; climbing stairs I had a uterine biopsy 3 years ago and now I wonder if my leg pain stems from biopsy. Tylenol and Tramadol is not touching the pain. I cant take [place]up[place], [phone], [facility] 01/10/2024 11:56:45 5 text/html walk inx 2 weeks after senior management consultant appointment severe pain to right groin with radiation down leg. Tramadol and Ibup not touching pain. 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 Has previously had the pain with no imaging done due to episode improvement at that time. States that the pain throbs at times and is made worse with activity. Located in the groin and radiates to the anterior and medial aspects of the right leg. AYLEEN FISH [address] [place], [phone], [facility] Lizzy, Satinder 04/27/2024 09:40:46 5 text/html Annual WellnessReported bypatient.Additional Lifestyle Factors:no tobacco use; no alcohol intakeDiabetesReported bypatient.Duration:chronic Control:usually well controlled; treated with diet and oral medications Compliance:compliant with medications; compliant with follow-up visits; compliant with dietHypertension IM/FMReported bypatient.Quality:here for check-up Duration:HTN present for years Alleviating Factors:medication Self Care:non-smoker Associated Symptoms:no shortness of breath; no chest painMusculoskeletal PainReported bypatient.Location:right hip; right knee Quality:sharp;tingling;dull Severity:worsening;interfer es with sleep;interferes with work/school Duration:present <1 month; started 2-3 days Timing:constant; sudden Alleviating Factors:rest; changing position Aggravating factors:movement/positionin g; bending over; twisting Associated Symptoms:weak limbs ADLs Affected:walking; sweeping; mopping; bathing; dressing; climbing stairs I had a uterine biopsy 3 years ago and now I wonder if my leg pain stems from biopsy. Tylenol and Tramadol is not touching the pain. I can't take Ibuprofen UMM EASTON, [employer] [address] [place], [phone], [facility] Lizzy, Satinder 08/27/2024 11:44:15 OBGyn Episode No OBEpisode recorded.
--- OUTSIDE RECORDS SUMMARY | 2024-10-16 18:10 | XMS_ITS | Encounter Summary ---
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 Name Role Phone Unavailable Primary Care Provider Unavailabl e Encounter Details Date Type Department Care Team (Latest Contact Info) Description 09/01/1998 Outpatient Historical [facility] Eriberto Escalante, Harjit Sanchez MD [address] [place] [phone] Nonspecific elevation of levels of transaminase or lactic acid dehydrogenase (LDH) (Primary Dx) Social History Tobacco Use Types Packs/Day Years Used Date Smoking Tobacco: Never Assessed Comments Unknown Sex and Gender Information Value Date Recorded Sex Assigned at Not on file 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
--- NOTE | 2024-10-16 18:43 | XRR_ITS ---
PROCEDURE INFORMATION: Exam: XR Right Shoulder Exam date and time: 10/16/2024 6:50 PM Age: 64 years old Clinical indication: Injury or trauma; Fall; Blunt trauma (contusions or hematomas); Shoulder; Right; Additional info: Humerous FX axillary view TECHNIQUE: Imaging protocol: Radiologic exam of the right shoulder. Views: 1 view. COMPARISON: CR (CHEST, ) 10/16/2024 5:59 PM FINDINGS: Bones/joints: The humeral head is properly positioned with respect to the glenoid fossa. Multiple comminuted fractures involve the surgical and anatomical neck of the humerus. Soft tissues: Normal. XR/XR shoulder RT 1V [id number] IMPRESSION: As above
[2024-10-16] MEDS: HYDROcodone-acetaminophen 10-325 mg Tablet 1 TAB PO ×3 (18:57→19:29)
--- NOTE | 2024-10-16 19:01 | W.ED.EXTPRO ---
HPI - Extremity Problem General: Chief complaint: Extremity Injury, Upper Stated complaint: fell-right shoulder pain Time Seen by Provider: 10/16/24 17:54 History of Present Illness: 64-year-old female diabetic, hypertensive, that presented to the ED after slipping on a puppy doggy pad in grandsons room, went backwards and her shoulder hit directly on dresser then her right side of her rear. Her pain is from her right shoulder. She is unable to move her right shoulder. This occurred just prior to arrival. Associated symptoms: Deny chest pain, fever(s) or rash Related Data Home Medications ?Medication ?Instructions ?Recorded ?Confirmed amlodipine 2.5 mg tablet 5 mg PO DAILY 08/25/20 04/13/24 aspirin 81 mg tablet,delayed 81 mg PO DAILY 02/07/23 04/13/24 release (Adult Low Dose Aspirin) atorvastatin 20 mg tablet 20 mg PO DAILY 02/07/23 04/13/24 metformin 500 mg tablet,extended 500 mg PO BID 02/07/23 04/13/24 release 24 hr spironolactone 25 mg PO DAILY 02/07/23 04/13/24 tramadol 50 mg tablet 50 mg PO Q4H PRN Pain 02/07/23 04/13/24 glyburide 2.5 mg tablet 2.5 mg PO DAILY 05/10/23 04/13/24 Allergies Allergy/AdvReac Type Severity Reaction Status Date / Time keywood Allergy Head Verified 04/13/24 07:48 congestion povidone-iodine (From Allergy blood Verified 04/13/24 07:48 Betadine) blisters soap (From Betadine) Allergy blood Verified 04/13/24 07:48 blisters Review of Systems General: Reports: 10 or more systems reviewed and unremarkable except in HPI and below Const: Denies: fever(s) or chills Eyes: Denies: change in vision or blurry vision ENMT: Denies: throat pain or mouth pain Card: Denies: chest pain or palpitations Resp: Denies: dyspnea or productive cough GI: Reports: nausea; Denies: abdominal pain or vomiting : Denies: flank pain or difficulty voiding Musc: Reports: extremity pain and joint pain; Denies: back pain or joint swelling Skin/Breast: Denies: rash or pruritus Neuro: Denies: headache(s) or numbness in extremities Psych: Denies: anxiety or depression PFS ED PFSH: Medical History Aftercare following surgery of the genitourinary system Hypertension Surgical History H/O: hysterectomy 08/27/2020- LENI with BSO performed by Dr. Davis at [facility] History of cholecystectomy Early History of delivery 1983 and 1985 Family History Grandfather CAD (coronary artery disease) Mother Hypertension Stroke Father CAD (coronary artery disease) Cancer Lung cancer - smoker Diabetes Lung disease COPD - smoker Denies family history of Clotting disorder Dementia Hyperlipidemia Psychiatric illness Chronic kidney disease (CKD) Suicide Anesthesia complication Bleeding disorder Family history of premature coronary artery disease Social History Smoking and tobacco/nicotine status: never used tobacco/nicotine Alcohol intake: never Substance/Drug Use: never Physical Exam Const: COMMON NORMALS: no acute distress, average body habitus and patient oriented x3 GENERAL APPEARANCE: cooperative ORIENTATION/CONSCIOUSNESS: Yes awake HENMT: COMMON NORMALS: normocephalic and atraumatic HEAD & SCALP: normocephalic and atraumatic FACE & SINUS: normal facial exam MOUTH: Normal oral and palatal mucosa present Neck/C-Spine: COMMON NORMALS: full ROM and no lymphadenopathy Resp: COMMON NORMALS: normal respiratory effort, No retractions and No use of accessory muscles Cardio: COMMON NORMALS: regular rate and regular rhythm RATE: regular rate RHYTHM: regular rhythm GI: COMMON NORMALS: Normal to inspection, nondistended, normoactive bowel sounds present, Soft to palpation and non-tender PALPATION: Yes Soft to palpation : COMMON NORMALS: Yes no CVA tenderness BLADDER/KIDNEY EXAM: Yes no CVA tenderness Back/Pelvis: COMMON NORMALS: no CVA tenderness Extremity: COMMON NORMALS: capillary refill normal GENERAL: Yes normal exam except as noted RIGHT UPPER EXTREMITY: Yes shoulder joint Right shoulder: Yes Right shoulder joint inspection exam (pain with palpation), Yes palpation, Yes Right shoulder joint ROM exam (Held in adduction) and Yes Right shoulder joint special tests Neuro: COMMON NORMALS: patient oriented x3 Psych: COMMON NORMALS: mental status grossly normal and Normal thought process present THOUGHT PROCESS: Normal thought process present Course Vital Signs: Vital signs: Vital Signs Temperature 98.0 F 10/16/24 17:53 Pulse Rate 91 10/16/24 17:53 Respiratory Rate 18 10/16/24 17:53 Blood Pressure 150/81 10/16/24 17:53 Pulse Oximetry 95 10/16/24 17:53 Oxygen Delivery Me thod Room Air 10/16/24 17:53 MDM - Extremity (Nontraumatic) Medical Decision Making Patient has a humeral head fracture noted on x-ray. Discussed with Dr. Calle who recommends axillary view which was obtained. This was located glenohumeral joint space, therefore orthopedist recommends sling, analgesic, and follow-up with him. Patient will call tomorrow for appointment. Given [place] 10 times #10. All of her questions were answered to her satisfaction. Lab Data Radiology Impressions Shoulder X-Ray 10/16/24 18:43 IMPRESSION: As above All radiology interpretation(s) finalized by discharge ED provider radiology interpretation(s): humeral head fx Discharge Plan Discharge Patient Disposition: Home Clinical Impression: Closed fracture of head of right humerus Qualifiers: Encounter type: initial encounter Qualified Code(s): S42.291A - Other displaced fracture of upper end of right humerus, initial encounter for closed fracture Condition: Stable Prescriptions: No Action amlodipine 2.5 mg tablet 5 mg PO DAILY spironolactone 25 mg PO DAILY metformin 500 mg tablet extended release 24 hr 500 mg PO BID atorvastatin 20 mg tablet 20 mg PO DAILY aspirin [Adult Low Dose Aspirin] 81 mg tablet,delayed release (DR/EC) 81 mg PO DAILY tramadol 50 mg tablet 50 mg PO Q4H PRN (Reason: Pain) glyburide 2.5 mg tablet 2.5 mg PO DAILY Discharge Orders: Discharge ED (Routine); Ordered 10/16/24 Ordered By: Lynne Blandon Referrals: Umm Hope FNP [Primary Care Provider, Unknown] Remigio Calle DO [Physician, Orthopedics] Discharge Diet: Usual diet Discharge Activity: Limit activity as instructed Patient Instructions: Arm Fracture in Adults (ED), Opioid Safety, Pain Management, Patient Portal & [place] Instructions Activity Restrictions/Additional Instructions: Wear sling to right upper extremity at all times, do not pick anything up with your right hand/nonweightbearing. Call Dr. Calle's office tomorrow for appointment and follow-up. Return to ED for worsening pain, redness, fever Stand Alone Forms: Work/School Release Print Language: Spanish Coding Level of Care Code ED Swine Extension Field Specialist for Lisa Phillip
[2024-10-16] MEDS: ondansetron hcl ODT 4 mg Tab PO (19:28)
== END 2024-10-16 19:19 | disposition home or self-care (01) ==
PROVIDERS: Emergency Provider Physician Assistant; PCP Nurse Practitioner Family
DX: S42.291A Other displaced fracture of upper end of right humerus, initial encounter for closed fracture (principal); Z79.84 Long term (current) use of oral hypoglycemic drugs; Z79.82 Long term (current) use of aspirin; I10 Essential (primary) hypertension; W01.0XXA Fall on same level from slipping, tripping and stumbling without subsequent striking against object, initial encounter
CPT/HCPCS: 73020; 73030; 99283; A4565; J9999; Q0162

== ENCOUNTER → 2024-10-23 14:15 | Outpatient (BNVA) | payer OTHER, SELFPAY | PROVIDERS: PCP Nurse Practitioner Family; Visit Provider Student in an Organized Health Care Education/Training Program | DX: S42.291A Other displaced fracture of upper end of right humerus, initial encounter for closed fracture (principal); W18.39XA Other fall on same level, initial encounter | CPT/HCPCS: 73060 ==

== ENCOUNTER 2024-10-29 06:55 | Outpatient (CLI) | payer OTHER, SELFPAY ==
--- NOTE | 2024-10-29 07:00 | CTR_ITS ---
PROCEDURE INFORMATION: Exam: CT Right Upper Extremity Without Contrast, Shoulder Exam date and time: 10/29/2024 7:10 AM Age: 64 years old Clinical indication: Injury or trauma; Fall; Blunt trauma (contusions or hematomas); Shoulder; Right; Injury date: 2 weeks ago; HX of uterine cancer; Additional info: Right proximal humerus fracture, urgent shoulder CT TECHNIQUE: Imaging protocol: Computed tomography of the right upper extremity without contrast. Exam focused on the shoulder. Radiation optimization: All CT scans at this facility use at least one of these dose optimization techniques: automated exposure control; mA and/or kV adjustment per patient size (includes targeted exams where dose is matched to clinical indication); or iterative reconstruction. COMPARISON: CR (CHEST, ) 10/16/2024 6:50 PM RADIATION DOSE METRICS: Total DLP (mGy-cm): 403.48 FINDINGS: Bones/joints: The bones appear demineralized. A comminuted fracture of the proximal humerus involving portions of the metaphysis, surgical and anatomic necks, and the greater and lesser tuberosities is identified with mild displacement. For example, a greater tuberosity fracture fragment is displaced laterally by 3 mm on series 12, image 58. A small lateral humeral head cortical fracture fragment is depressed by 9 mm on series 4, image 32. No healing at the fracture site is noted. Mild humeral head and glenoid osteophyte formation is present. Mild osteophyte formation and subcortical cystic changes in the distal clavicle are noted. Degenerative changes in the visualized spine are present. Soft tissues: Normal. Lungs: A solid right middle lobe nodule is identified measuring 1.2 x 0.9 cm on series 5, image 75. A partially imaged more inferiorly located right middle lobe nodule on series 5, image 82 measures at least 0.[address]/CT shoulder RT wo con* [id number] IMPRESSION: 1. Similar acute to subacute appearing mildly displaced fracture of the proximal right humerus. No definitive evidence of a well-defined underlying lesion to suggest a pathologic fracture, however, assessment of the marrow is limited by CT and in the setting of demineralization. 2. Right-sided pulmonary nodules are noted in the visualized thorax concerning for metastases in the setting of a history of uterine cancer. Fleischner Society follow up recommendations for incidental nodules are not indicated. Follow up per the patient's medical condition. 3. Glenohumeral joint and acromioclavicular joint primary osteoarthritic changes.
== END 2024-10-29 06:56 | disposition home or self-care (01) ==
PROVIDERS: PCP Nurse Practitioner Family; Visit Provider Student in an Organized Health Care Education/Training Program
DX: S42.291A Other displaced fracture of upper end of right humerus, initial encounter for closed fracture (principal); S42.201A Unspecified fracture of upper end of right humerus, initial encounter for closed fracture; W19.XXXA Unspecified fall, initial encounter; Z85.42 Personal history of malignant neoplasm of other parts of uterus; R91.1 Solitary pulmonary nodule; M19.011 Primary osteoarthritis, right shoulder
CPT/HCPCS: 73200

== ENCOUNTER → 2024-11-07 15:00 | Outpatient (BNVA) | payer OTHER, SELFPAY | PROVIDERS: PCP Nurse Practitioner Family; Visit Provider Student in an Organized Health Care Education/Training Program | DX: S42.201A Unspecified fracture of upper end of right humerus, initial encounter for closed fracture (principal); X58.XXXA Exposure to other specified factors, initial encounter | CPT/HCPCS: 73030 ==

== ENCOUNTER → 2024-12-04 14:28 | Outpatient (BNVA) | payer OTHER, SELFPAY | PROVIDERS: PCP Nurse Practitioner Family; Visit Provider Student in an Organized Health Care Education/Training Program | DX: S42.201A Unspecified fracture of upper end of right humerus, initial encounter for closed fracture (principal); X58.XXXA Exposure to other specified factors, initial encounter | CPT/HCPCS: 73030 ==

== ENCOUNTER 2024-12-21 12:17 | Outpatient (RCR) | payer OTHER, SELFPAY | END 2024-12-23 23:59 | disposition home or self-care (01) | LOC: SPT 12:17 | PROVIDERS: Visit Provider Student in an Organized Health Care Education/Training Program | DX: S42.201D Unspecified fracture of upper end of right humerus, subsequent encounter for fracture with routine healing (principal); X58.XXXD Exposure to other specified factors, subsequent encounter | CPT/HCPCS: 97161; 97530 ==

== ENCOUNTER 2024-12-24 05:00 | Outpatient (RCR) | payer OTHER, SELFPAY | END 2025-01-22 23:59 | disposition home or self-care (01) | LOC: SPT 05:00 | PROVIDERS: PCP Nurse Practitioner Family; Visit Provider Student in an Organized Health Care Education/Training Program | DX: S42.201D Unspecified fracture of upper end of right humerus, subsequent encounter for fracture with routine healing (principal); X58.XXXD Exposure to other specified factors, subsequent encounter | CPT/HCPCS: 97110 ==

== ENCOUNTER 2024-12-27 09:53 | Outpatient (CLI) | payer OTHER, SELFPAY ==
--- NOTE | 2024-12-27 10:00 | CT_ITS ---
WS: [id number] CT chest ION (PULM ONLY) 22626 HISTORY: R91.1 - Solitary pulmonary nodule TECHNIQUE: Axial imaging performed through the thorax. CONTRAST: None DLP: 361.59 mGy COMPARISON: Shoulder CT 10/29/2024 Study is submitted as an ion which is performed prior to navigational bronchoscopy. Very limited evaluation of the chest with no reformats. Reidentified is a 9.6 mm slightly lobulated nodule in the RIGHT middle lobe with a small adjacent satellite lesions. There is a smaller nodule along the fissure measuring 8 mm. No interval change since 10/29/2024. There is additional mild linear atelectasis in the medial RIGHT upper lobe. Lobulated ovoid mass measuring 1.4 x 0.6 cm at the LEFT lung base. Atherosclerosis aorta. No adenopathy identified. Mild atherosclerosis aorta. Small hiatal hernia. Prior cholecystectomy. No adrenal mass. CT/CT chest ION (PULM ONLY) [id number] IMPRESSION: 1. RIGHT middle lobe and LEFT lower lobe nodules as described above. Limited e valuation of these nodules is only and Ion protocol was submitted. Recommend fo llow-up chest CT with IV contrast with reformats. 2. No adenopathy identified on this limited exam.
== END 2024-12-27 09:54 | disposition home or self-care (01) ==
LOC: RAD 09:56
PROVIDERS: PCP Nurse Practitioner Family; Visit Provider Internal Medicine
DX: R91.1 Solitary pulmonary nodule (principal); J98.11 Atelectasis; J98.4 Other disorders of lung; K44.9 Diaphragmatic hernia without obstruction or gangrene; Z90.49 Acquired absence of other specified parts of digestive tract
CPT/HCPCS: 71250

== ENCOUNTER 2024-12-31 16:51 | Outpatient (CLI) | payer OTHER, SELFPAY ==
[2024-12-31 17:59] LABS: Hematocrit 42.8 % (36-47); Hemoglobin 14.50 g/dL (11.27-16.99); Mean Corpuscular HGB Conc 33.9 g/dL (30-55); Mean Corpuscular Hemoglobin 29.1 pg (27-33); Mean Corpuscular Volume 85.9 fl (85-98); Nucleated Red Blood Cells % 0 %; Platelet Count 360 10^3/cmm (157-399); Red Blood Count 4.98 10^6/uL (3.85-5.65); White Blood Count 12.49 10^3/uL (3.29-11.43)
[2024-12-31 18:19] LABS: Alanine Aminotransferase 22 U/L (0-33); Albumin Level 4.5 g/dL (3.5-5.2); Alkaline Phosphatase 98 U/L (35-105); Anion Gap 14.3 (5-19); Aspartate Amino Transferase 18 U/L (0-32); Blood Urea Nitrogen 12 mg/dL (8-23); Calcium 9.6 mg/dL (8.5-10.5); Carbon Dioxide 25 mmol/L (22-29); Chloride 101 mmol/L (98-107); Globulin 2.9 g/dL (1.3-4.6); Glucose 140 mg/dL (65-115); Osmolality Calculated 286 mOsm/kg (285-295); Potassium 3.3 mmol/L (3.5-5.1); Sodium 137 mmol/L (136-145); Total Protein 7.4 g/dL (6.6-8.7)
[2024-12-31 18:37] LABS: INR 0.94 (0.8-1.2); Prothrombin Time 13.20 SECONDS (12.1-14.9)
[2024-12-31 18:38] LABS: Partial Thromboplastin Time 26.2 SECONDS (23.9-36.7)
== END 2024-12-31 16:52 | disposition home or self-care (01) ==
PROVIDERS: PCP Nurse Practitioner Family; Visit Provider Internal Medicine
DX: R06.02 Shortness of breath (principal); R91.1 Solitary pulmonary nodule; Z48.816 Encounter for surgical aftercare following surgery on the genitourinary system
CPT/HCPCS: 36415; 80053; 85025; 85610; 85730

== ENCOUNTER 2025-01-03 05:58 | Day surgery (SDC) | payer OTHER, SELFPAY ==
[2025-01-03] VITALS (12 sets, daily range): BP systolic 135–168; BP diastolic 80–94; PULSE 89–100; RESP 16–18; TEMP 36.1–36.7; O2SAT 91–99; BMI 31.2
--- NOTE | 2025-01-03 06:17 | SC_ITS ---
WS: [id number] INTRAOPERATIVE FLUOROSCOPY TIME: 15.37 seconds CLINICAL INFORMATION: ion/bronch COMPARISON: None. FINDINGS: Images obtained for intraoperative navigation purposes SC/C-arm FL for Bronchoscopy IMPRESSION: Images obtained for intraoperative bronchoscopy navigational purposes.
--- NOTE | 2025-01-03 06:51 | ANES.PREANE2 ---
Pre-Anesthetic Assessment Height/Weight: Height 1.52 m Weight 72.575 kg Temp Pulse Resp BP Pulse Ox O2 Del Method 98.1 F 94 17 149/92 97 Room Air 01/03/25 06:10 01/03/25 06:10 01/03/25 06:10 01/03/25 06:10 01/03/25 06:10 01/03/25 06:10 Operation Date: 01/03/25 07:00 Proposed Procedures p Bronchoscopy 23549 [id number] 15270 20270 [id number] 49612 [id number] 24411(Not Applicable) - Rafa Magana MD s Ion Robotic Assisted Bronchoscopy Robotic Bronchoscopy(Not Applicable) - Rafa Magana MD s Ebus Endobronchial Ultrasound (EBUS)(Not Applicable) - Rafa Magana MD Last intake: Intake Last Liquid Date 01/02/25 Last Liquid Time 22:00 Last Solid Date 01/02/25 Last Solid Time 20:00 Social No alcohol and No tobacco Exam alert, oriented x 3, clear to auscultation bilaterally and regular rate & rhythm Airway Submandibular: within normal limits Cervical ROM: within normal limits Mallampati: Class II Pulmonary Asymptomatic pulmonary nodules CV/HEM Hypertension Endometrial CA GI Gastroesophageal Reflux Disease Metabolic Diabetes Mellitus and Morbid Obesity Anesthetic Plan ASA status: 3 Anesthesia: General Medications/Allergies Home Medications ?Medication ?Instructions ?Recorded ?Confirmed ?Last Taken ?Type aspirin 81 mg tablet,delayed 81 mg PO DAILY 02/07/23 12/31/24 12/31/24 History release (Adult Low Dose Aspirin) atorvastatin 20 mg tablet 20 mg PO DAILY 02/07/23 12/31/24 12/31/24 History metformin 500 mg tablet,extended 500 mg PO BID 02/07/23 12/31/24 12/31/24 History release 24 hr spironolactone 25 mg PO DAILY 02/07/23 12/31/24 12/31/24 History tramadol 50 mg tablet 50 mg PO Q4H PRN Pain 02/07/23 12/31/24 12/31/24 History glyburide 2.5 mg tablet 2.5 mg PO DAILY 05/10/23 12/31/24 12/31/24 History pantoprazole 40 mg tablet,delayed 40 mg PO BEDTIME 12/26/24 12/31/24 12/31/24 History release alprazolam 0.25 mg tablet 0.25 mg PO BEDTIME PRN Sleep 12/31/24 12/31/24 Unknown History amlodipine 10 mg tablet 10 mg PO DAILY 12/31/24 01/03/25 01/03/25 05:00 History gabapentin 100 mg capsule 100 mg PO TID 12/31/24 12/31/24 12/31/24 History losartan 25 mg tablet 25 mg PO DAILY 12/31/24 12/31/24 Unknown History Allergies Allergy/AdvReac Type Severity Reaction Status Date / Time cedarwood Allergy Head Verified 12/31/24 08:55 congestion povidone-iodine (From Allergy blood Verified 12/31/24 08:55 Betadine) blisters soap (From Betadine) Allergy blood Verified 12/31/24 08:55 blisters Current Medications Generic Name Dose Route Start Last Admin Trade Name Freq PRN Reason Stop Dose Admin Sodium Chloride 1,000 mls @ 30 mls/hr 01/03/25 06:15 01/03/25 06:49 Sodium Chloride 0.9% IV 01/04/25 06:14 30 mls/hr .Q24H CECELIA Administration [facility] Anesthesia Medical History (Updated 12/26/24 @ 09:30 by Rafa Magana MD) Aftercare following surgery of the genitourinary system Hypertension Surgical History H/O: hysterectomy 08/27/2020- LENI with BSO performed by Dr. Davis at [facility] History of cholecystectomy Early 1999' History of delivery 1983 and 1985 Family History Grandfather CAD (coronary artery disease) Mother Hypertension Stroke Father CAD (coronary artery disease) Cancer Lung cancer - smoker Diabetes Lung disease COPD - smoker Denies family history of Clotting disorder Dementia Hyperlipidemia Psychiatric illness Chronic kidney disease (CKD) Suicide Anesthesia complication Bleeding disorder Family history of premature coronary artery disease Social History Smoking and tobacco/nicotine status: never used tobacco/nicotine Alcohol intake: never Substance/Drug Use: never
--- NOTE | 2025-01-03 07:20 | W.PM.OPSUD ---
Surgery/Procedure H&P Update DATE OF PROCEDURE: January 03, 2025 DATE H&P PERFORMED: 12/26/24 CHANGES TO PREVIOUS DOCUMENTATION: Patient was seen and examined. No change in her clinical status since I interviewed with her on 12/26/2024. Discussed with the patient the approach for her lung nodule. Discussed the benefits and the risk of the bronchoscopy. The risks included bleeding, collapsed lung, lung injury, pain, cardiovascular collapse, nondiagnostic sample and and she agreed to proceed forward. PLANNED PROCEDURE: Operation Date: 01/03/25 07:00 Proposed Procedures p Bronchoscopy 50034 45528 34685 [id number] [id number] 09274 [id number] 07570(Not Applicable) - Rafa Magana MD s Ion Robotic Assisted Bronchoscopy Robotic Bronchoscopy(Not Applicable) - Rafa Magana MD s Ebus Endobronchial Ultrasound (EBUS)(Not Applicable) - Rafa Magana MD
[2025-01-03] MEDS: lidocaine 2% INJ 20 mL XX (09:52)
--- NOTE | 2025-01-03 09:56 | P.BOP_ITS ---
Interventional Pulmonary Immediate Brief Operative Note: * Date of Procedure: January 03, 2025 * Preoperative Diagnosis:?Lung nodules * Postoperative Diagnosis:?[Same as pre-op] * Procedures Performed: Robotic bronchoscopy with mediastinal EBUS staging * Surgeon / Water Mangle Tender:?Rafa Magana MD * Anesthesia: * ?General anesthesia * Findings: Normal airway findings without obvious endobronchial lesion. But we were able to locate lung nodules. * Estimated Blood Loss (EBL):?Less than 20 cc * Specimens: * ?BAL fluid right middle lobe * ?TBNA from right lower lobe nodule, right middle lobe nodules, 11L, station 7 and 11R * Forceps and cryobiopsy from right middle lobe nodules * Right middle lobe nodules brushings * Complications:?None * Disposition:?Transferred to PACU in stable condition. Rafa Magana MD, FACP Interventional Pulmonogist
--- NOTE | 2025-01-03 09:56 | W.PM.BPON ---
Interventional Pulmonary Immediate Brief Operative Note: Date of Procedure: January 03, 2025 Preoperative Diagnosis:?Lung nodules Postoperative Diagnosis:?[Same as pre-op] Procedures Performed: Robotic bronchoscopy with mediastinal EBUS staging Surgeon / Call Center Operator:?Rafa Magana MD Anesthesia: ?General anesthesia Findings: Normal airway findings without obvious endobronchial lesion. But we were able to locate lung nodules. Estimated Blood Loss (EBL):?Less than 20 cc Specimens: ?BAL fluid right middle lobe ?TBNA from right lower lobe nodule, right middle lobe nodules, 11L, station 7 and 11R Forceps and cryobiopsy from right middle lobe nodules Right middle lobe nodules brushings Complications:?None Disposition:?Transferred to PACU in stable condition. Rafa Magana MD, FACP Interventional Pulmonogist
--- NOTE | 2025-01-03 10:09 | XRR_ITS ---
PROCEDURE INFORMATION: Exam: XR Chest Exam date and time: 01/03/2025 10:12 AM Age: 64 years old Clinical indication: Device placement; Other: Ion pacu; Additional info: Post ion, pacu TECHNIQUE: Imaging protocol: Radiologic exam of the chest. 3 image(s) are submitted. Views: 1 view. COMPARISON: CT chest ION (PULM ONLY) [id number] 12/27/2024 10:27 AM FINDINGS: Lungs: 7 cm region of airspace abnormality in the right lower lung, concerning for pneumonia in the correct clinical setting, new since previous study. No pneumothorax or pleural effusion. Normal heart size. Mild pulmonary venous congestion. Pleural spaces: See Lungs finding. Heart/Mediastinum: See Lungs finding. Bones/joints: Unremarkable. XR/XR chest 1V portable [id number] IMPRESSION: 7 cm region of airspace abnormality in the right lower lung, concerning for pneumonia in the correct clinical setting, new since previous study. No pneumothorax or pleural effusion. Normal heart size. Mild pulmonary venous congestion.
[2025-01-03] MEDS: fentaNYL 50 mcg/mL INJ 2mL IVP (10:57)
--- NOTE | 2025-01-03 13:07 | PM.PACU ---
PACU note Narrative: Stable Vitals and airway; pain well controlled and no n/v.
--- NOTE | 2025-01-03 17:10 | P.OP_ITS ---
Operative Report Date of procedure: January 03, 2025 Pre-op diagnosis: Lung nodules Post-op diagnosis: Same Procedure done: Robotic bronchoscopy with mediastinal staging Surgeon: Rafa Magana MD Estimated blood loss: Less than 5 cc Complications: None Findings: Procedure: Robotic bronchoscopy with complete mediastinal staging Attending: Rafa Magana MD, FACP, FASN Indication: Lung nodule Medications: Lidocaine 2% (8cc) applied to the tracheobronchial tree Anesthesia: General anesthesia per anesthesia team Procedure: Pre-Anesthesia Assessment [place] Protocol: Pre-procedure Verification: Prior to the procedure, the patient's identity was confirmed using full name, date of , and medical record number. Identity verification included a review of all relevant medical records, history, physical examination, medications, allergies, and previous anesthesia tolerance. Risks, benefits, sedation options, and associated risks were reviewed with the patient, and informed consent was obtained after addressing all questions. Time-Out: Immediately before the procedure, a time-out was conducted to confirm patient identification, procedure details, consent, image labeling, and the need for prophylactic antibiotics. This was verified by the physician, nurse, anesthesiologist, and tail trimmer. Outcome: The procedure was completed without difficulty, and the patient tolerated it well. Findings: A thorough airway exam was performed after passage of the bronchoscope. The trachea was anatomically normal. The right sided airway was anatomically normal without endobronchial lesions. No secretions. The left sided airway was anatomically normal without endobronchial lesions. No secretions. The prior bronchoscope was removed from the airway. The [employer] Robotic Bronchoscopy platform was moved into place. The robotic bronchoscope was inserted into the endotracheal tube with care. The position of the bronchoscope was registered to a pre-existing CT scan using shape-sensing virtual bronchoscopy technology (43242). Initially we navigated to the left lower lobe nodule. Upon doing cone beam CT, unfortunately patient was found to have significant lower lobe atelectasis and the lung nodule could not be identified though we started the patient on a high PEEP strategy with high tidal volume along with recruitment maneuvers despite that atelectasis was not prevented. Then, we navigated towards the lesion in the right lower lobe using a pre- planned route using virtual bronchoscopy Prior to sampling, confirmation of lesion location was done using: - Radial ultrasound probe with a week eccentric view (47847), - Fluroscopy with a tool overlying the lesion on at least one visual plane. - Virtual target located directly within the path of intended biopsy direction on shape sensing robotic - Cone Beam intraoperative CT was performed 2 time(s). The intraoperative CT imaging interpretation was utilized for guidance for needle placement. Imaging interpretation by me shows the persistent lesion as well as a tool within the lesion (24548) - CBCT data from the intraoperative imaging was integrated into the [employer] navigation software and the virtual lesion was updated. After confirming our location, we proceeded to sampling. Transbronchial needle aspiraiton (TBNA) was performed of the lesion using the [employer] TBNA 23-gauge needle. A total of 8 passes were formed. (47393) We did not perform forceps or cryobiopsy as the nodule was at the pleura with high risk of airleak syndrome. Then, we navigated towards the lesion in the right middle lobe nodules (both nodules were very close to each other and about 1 cm apart) using a pre-planned route using virtual bronchoscopy Prior to sampling, confirmation of lesion location was done using: - Radial ultrasound probe with an eccentric view (83148), - Fluroscopy with a tool overlying the lesion on at least one visual plane. - Virtual target located directly within the path of intended biopsy direction on shape sensing robotic - Cone Beam intraoperative CT was performed 2 time(s). The intraoperative CT imaging interpretation was utilized for guidance for needle placement. Imaging interpretation by me shows the persistent lesion as well as a tool within the lesion (07585) - CBCT data from the intraoperative imaging was integrated into the ION navigation software and the virtual lesion was updated. After confirming our location, we proceeded to sampling. Transbronchial needle aspiraiton (TBNA) was performed of the lesion using the [employer] TBNA 21-gauge needle. A total of 6 passes were formed. (72996) Transbronchial biopsies of the lesion were performed using the captura 1.8 mm forceps and 1.1 cryoprobe). A total of 12 samples were obtained. (87646) Endobronchial brushings performed down the airway towards the lesion. A total of 3 brushings were obtained. (52694) A bronchoalveolar lavage was performed of the lobe containing the target lesion with 90mL of saline instilled and 40 mL of effluent returned. Additional rinse from the robotic bronchoscope lumen was added to the sample after removal of the scope. (79434) We changed the new tools for the right middle lobe nodule so we will not have any contamination with the right lower lobe nodules. The prior bronchoscope was removed from the airway and the EBUS scope was inserted. A complete curvilinear EBUS procedure was performed of the following lymph nodes: Level 11L station was identified with the EBUS scope at the LLL/L hilum and 4 passes were made using a 22G [employer] TBNA needle. Level 4L station was identified with the EBUS scope at the lateral LMSB and did not meet criteria for sampling Level 7 station was identified with the EBUS scope at the medial LMSB/RMSB and 4 passes were made using a 22G Olymp[employer] TBNA needle. Level 4R station was identified with the EBUS scope at the lateral RMSB and did not meet criteria for sampling Level 11R station was identified with the EBUS scope at the RBI/R hilum and 4 passes were made using a 22G Olympus TBNA needle. Effie Bleeding Scale Grade 1: Suctioning <1 minute. Bleeding of no clinical consequence to patient or provider. Following completion of all diagnostic and therapeutic procedures, hemostasis was verified. The scope was removed and procedure concluded. In summary, the following procedures were performed: [address]54 [place] (Endobronchial Brushing(s)), 40274 BAL, (Bronchoalveolar Lavage), 53816 TBBX, (Transbronchial biopsies, first lobe), 81973 pTBNA, (peripheral transbronchial needle aspiration), 90993 pTBNA (peripheral transbronchial needle aspiration of a different lobe), 76432 cEBUS 3 or more lesions, (Central curvelinear EBUS 3 or more lesions), 06203 pEBUS (peripheral/radial EBUS), 38543 [place], (Navigation bronchoscopy, [employer], [employer]), 20852: CT guidance for needle placement, Rafa Magana MD, FACP, FASN Interventional Pulmonary Procedure:
[2025-01-10 10:25] LABS: Cyto Order Verification Order Verified
== END 2025-01-03 12:27 | disposition home or self-care (01) ==
PROVIDERS: PCP Nurse Practitioner Family; Visit Provider Internal Medicine
PROC: 0BJ08ZZ Inspection of Tracheobronchial Tree, Via Natural or Artificial Opening Endoscopic (ICD-10-PCS; CPT 31622; principal; 2025-01-03 07:00)
PROC: 0BJ08ZZ Inspection of Tracheobronchial Tree, Via Natural or Artificial Opening Endoscopic (ICD-10-PCS; CPT 31622; 2025-01-03 07:00)
PROC: BB4BZZZ Ultrasonography of Pleura (ICD-10-PCS; 2025-01-03 07:00)
DX: R91.8 Other nonspecific abnormal finding of lung field (principal); I10 Essential (primary) hypertension; K21.9 Gastro-esophageal reflux disease without esophagitis; E11.9 Type 2 diabetes mellitus without complications; E66.01 Morbid (severe) obesity due to excess calories; Z68.31 Body mass index [BMI] 31.0-31.9, adult; Z79.82 Long term (current) use of aspirin; Z85.42 Personal history of malignant neoplasm of other parts of uterus
CPT/HCPCS: 31623; 31624; 31628; 31653; 31654; 36416; 71045; 76000; 82962; 87015; 87070; 87075; 87102; 87116; 87176; 87205; 87206; 87801; 88112; 88173; 88305; 88312; A9270; J1100; J2250; J2405; J2704; J3010; J3490; J7030; J9999

== ENCOUNTER 2025-01-11 10:26 | Outpatient (CLI) | payer OTHER, SELFPAY ==
--- NOTE | 2025-01-11 10:30 | PETR_ITS ---
PROCEDURE INFORMATION: Exam: PET/CT Skull Base to Mid-thigh Exam date and time: 01/11/2025 11:50 AM Age: 64 years old Clinical indication: Abnormal findings; Nodule seen on CT LABS AND CLINICAL REPORTS: Glucose: 86 mg/dl Treatment strategy for malignancy (PET staging): Initial Staging (PI) TECHNIQUE: Imaging protocol: Following at least four-hour fasting and following the injection of radiopharmaceutical, low dose CT images were obtained. Then, PET images were obtained. Attenuation corrected images were constructed using the CT scan. Fused images of PET and CT were reviewed. The standardized uptake values (SUV) reported below are maximum values within a region of interest, expressed in gm/ml. Exam includes orbital meatal line to mid-thigh. SUV normalization method: BodyWeight Radiopharmaceutical: 10.12 mCi F-18 FDG (Fluorodeoxyglucose), IV. Time of imaging post radiopharmaceutical administration: 58 minutes Injection site: left ac COMPARISON: CT chest ION (PULM ONLY) [id number] 12/27/2024 10:27 AM FINDINGS: Brain: Visualized brain has normal physiologic uptake. Oral cavity: Mild tracer uptake at the right greater than left base of tongue, likely inflammatory. Pharynx: No abnormal uptake. Larynx: No abnormal uptake. Lungs, pleura and trachea: Mildly avid consolidative opacity in the right middle lobe measuring approximately 3.7 x 4.0 cm demonstrating SUV max of 4.3 near the anterior part of this consolidation (series 202, image 93) at the site of prior right middle lobe nodule. The nodule is poorly delineated given surrounding consolidation on this exam. Increased size of 1.4 cm right lower lobe nodule (series 202, image 98), previously 8 mm, with avidity similar to blood pool. Grossly unchanged tubular left lower lobe nodule (image 97) with avidity similar to background. Heart: Normal physiologic uptake. Mediastinal space: No abnormal uptake. Liver: No abnormal uptake. Gallbladder and biliary ducts: No abnormal uptake. Pancreas: No abnormal uptake. Spleen: No abnormal uptake. Adrenal glands: No abnormal uptake. Kidneys and ureters: Normal physiologic uptake. Stomach and bowel: No abnormal uptake. Vasculature: No abnormal uptake. Lymph nodes: Hypermetabolic right subcarinal lymph node measuring 1.6 cm with SUV max of 8.7. Skeleton: Degenerative uptake in the right shoulder. Soft tissues: No abnormal uptake in the visualized head, neck, chest, abdomen, pelvis, and extremities. METRICS: Mediastinal blood pool: SUV max = 2.0 Liver uptake: SUV max = 2.4 PET/PET skull to thigh INIT [id number] IMPRESSION: 1. Mildly avid consolidative opacity in the right middle lobe, likely reflecting pneumonia. The previously seen right middle lobe nodule is partially delineated from the surrounding consolidation and demonstrates SUV max slightly higher than the remainder of the consolidation (SUV max 4.3 versus 2.5). 2. Hypermetabolic right subcarinal lymph node may be reactive in the setting of concurrent pneumonia. 3. Increased size of right lower lobe nodule with grossly unchanged tubular left lower lobe nodule, both of which demonstrate avidity similar to background. These remain indeterminate and attention on CT follow-up is recommended.
== END 2025-01-11 10:27 | disposition home or self-care (01) ==
PROVIDERS: PCP Nurse Practitioner Family; Visit Provider Internal Medicine
DX: R91.1 Solitary pulmonary nodule (principal); R93.89 Abnormal findings on diagnostic imaging of other specified body structures; R59.0 Localized enlarged lymph nodes
CPT/HCPCS: 78815; A9552

== ENCOUNTER 2025-01-22 09:00 | Outpatient (CLI) | payer OTHER, SELFPAY | END 2025-01-22 09:01 | disposition home or self-care (01) | PROVIDERS: PCP Nurse Practitioner Family; Visit Provider Internal Medicine | DX: R91.1 Solitary pulmonary nodule (principal) | CPT/HCPCS: 94010; 94726; 94729 ==

== ENCOUNTER 2025-01-23 06:30 | Outpatient (RCR) | payer OTHER, SELFPAY | END 2025-01-30 14:34 | disposition home or self-care (01) | LOC: SPT 06:30 | PROVIDERS: PCP Nurse Practitioner Family; Visit Provider Student in an Organized Health Care Education/Training Program | DX: S42.201D Unspecified fracture of upper end of right humerus, subsequent encounter for fracture with routine healing (principal); X58.XXXD Exposure to other specified factors, subsequent encounter | CPT/HCPCS: 97530 ==

== ENCOUNTER → 2025-01-29 14:02 | Outpatient (BNVA) | payer OTHER, SELFPAY | PROVIDERS: PCP Nurse Practitioner Family; Visit Provider Student in an Organized Health Care Education/Training Program | DX: S42.201A Unspecified fracture of upper end of right humerus, initial encounter for closed fracture (principal); X58.XXXA Exposure to other specified factors, initial encounter | CPT/HCPCS: 73030 ==

== ENCOUNTER → 2025-03-05 11:37 | Outpatient (BNVA) | payer OTHER, SELFPAY | PROVIDERS: PCP Nurse Practitioner Family; Referring Provider Internal Medicine; Visit Provider Student in an Organized Health Care Education/Training Program | DX: J84.10 Pulmonary fibrosis, unspecified (principal) | CPT/HCPCS: 80053; 82085; 82164; 85025; 86036; 86140; 86160; 86162; 86235; 86255; 86376; 86612; 86635; 86698; 87385; 87449 ==

== ENCOUNTER 2025-03-19 08:08 | Outpatient (CLI) | payer OTHER, SELFPAY ==
--- NOTE | 2025-03-19 08:14 | MM_ITS ---
WS: [id number] BILATERAL 3D TOMOSYNTHESIS DIGITAL SCREENING MAMMOGRAPHY WITH CAD CLINICAL INFORMATION: SCREENING HISTORY: Screening mammogram. No current complaints. COMPARISON: 2023 TECHNIQUE: Bilateral CC and MLO views. FINDINGS: Scattered fibroglandular densities bilaterally. No suspicious focal mass, asymmetry, calcifications, or architectural distortion. No evidence of malignancy. Vascular calcification. Incidental punctate and lucent centered calcifications. MM/MM [facility] tomosynthesis [id number] IMPRESSION: DENSITY: There are scattered areas of fibroglandular density. BI-RADS: 2 - Benign. FOLLOW UP: 1 Year Follow-up Recommend return to annual screening mammography.
== END 2025-03-19 08:09 | disposition home or self-care (01) ==
PROVIDERS: PCP Nurse Practitioner Family; Referring Provider Student in an Organized Health Care Education/Training Program; Visit Provider Nurse Practitioner Family
DX: Z12.31 Encounter for screening mammogram for malignant neoplasm of breast (principal); B38.9 Coccidioidomycosis, unspecified; R92.323 Mammographic fibroglandular density, bilateral breasts; R92.1 Mammographic calcification found on diagnostic imaging of breast
CPT/HCPCS: 36415; 77063; 77067; 86635